=== PATIENT | male | born 1935 | race Hispanic/Latino ===

== ENCOUNTER 2016-04-30 08:27 | Outpatient (CLI) | payer MEDICARE ==
[2016-04-30] MEDS ORDERED: XYLOCAINE TOPICAL 4% TP ONE ×2 (08:48→15:23)
[2016-04-30] MEDS ORDERED: AD OINTMENT TP ONE (09:30)
[2016-05-01] MEDS ORDERED: AD OINTMENT TP SCH (10:00)
== END 2016-04-30 08:28 | disposition home or self-care (01) ==
LOC: WOUND 08:27
PROVIDERS: ATTEND Internal Medicine
DX: I87.313 Chronic venous hypertension (idiopathic) with ulcer of bilateral lower extremity (principal); L97.822 Non-pressure chronic ulcer of other part of left lower leg with fat layer exposed; L97.812 Non-pressure chronic ulcer of other part of right lower leg with fat layer exposed; I87.2 Venous insufficiency (chronic) (peripheral); I77.1 Stricture of artery; M19.90 Unspecified osteoarthritis, unspecified site
CPT/HCPCS: 29581; 97597; A6250

== ENCOUNTER 2016-05-06 08:25 | Outpatient (CLI) | payer MEDICARE ==
[2016-05-06] MEDS ORDERED: XYLOCAINE TOPICAL 4% TP ONE ×2 (08:55→09:03)
== END 2016-05-06 08:26 | disposition home or self-care (01) ==
LOC: WOUND 08:25
PROVIDERS: ATTEND Orthopaedic Surgery
DX: I87.313 Chronic venous hypertension (idiopathic) with ulcer of bilateral lower extremity (principal); L97.822 Non-pressure chronic ulcer of other part of left lower leg with fat layer exposed; L97.812 Non-pressure chronic ulcer of other part of right lower leg with fat layer exposed; M19.90 Unspecified osteoarthritis, unspecified site

== ENCOUNTER 2016-05-13 08:33 | Outpatient (CLI) | payer MEDICARE ==
[2016-05-13] MEDS ORDERED: XYLOCAINE TOPICAL 2% ONE (09:04)
[2016-05-13] MEDS ORDERED: XYLOCAINE TOPICAL 2% TP ONE (14:18)
== END 2016-05-13 08:34 | disposition home or self-care (01) ==
LOC: WOUND 08:33
PROVIDERS: ATTEND Orthopaedic Surgery
DX: L97.821 Non-pressure chronic ulcer of other part of left lower leg limited to breakdown of skin (principal); L97.811 Non-pressure chronic ulcer of other part of right lower leg limited to breakdown of skin; I87.2 Venous insufficiency (chronic) (peripheral); M19.90 Unspecified osteoarthritis, unspecified site
CPT/HCPCS: 29580

== ENCOUNTER 2016-05-20 08:36 | Outpatient (CLI) | payer MEDICARE ==
[2016-05-20] MEDS ORDERED: XYLOCAINE TOPICAL 2% TP ONE ×2 (08:55→09:09)
== END 2016-05-20 08:37 | disposition home or self-care (01) ==
LOC: WOUND 08:36
PROVIDERS: ATTEND Orthopaedic Surgery
DX: I87.313 Chronic venous hypertension (idiopathic) with ulcer of bilateral lower extremity (principal); L97.912 Non-pressure chronic ulcer of unspecified part of right lower leg with fat layer exposed; L97.922 Non-pressure chronic ulcer of unspecified part of left lower leg with fat layer exposed; M19.90 Unspecified osteoarthritis, unspecified site

== ENCOUNTER 2016-05-27 08:35 | Outpatient (CLI) | payer MEDICARE ==
[2016-05-27] MEDS ORDERED: XYLOCAINE TOPICAL 2% ONE (08:48)
[2016-05-27] MEDS ORDERED: XYLOCAINE TOPICAL 2% TP ONE (08:59)
[2016-05-27] MEDS ORDERED: AD OINTMENT TP ONE (09:30)
== END 2016-05-27 08:36 | disposition home or self-care (01) ==
LOC: WOUND 08:35
PROVIDERS: ATTEND Internal Medicine
DX: I87.313 Chronic venous hypertension (idiopathic) with ulcer of bilateral lower extremity (principal); L97.912 Non-pressure chronic ulcer of unspecified part of right lower leg with fat layer exposed; L97.922 Non-pressure chronic ulcer of unspecified part of left lower leg with fat layer exposed; N40.1 Benign prostatic hyperplasia with lower urinary tract symptoms; D50.8 Other iron deficiency anemias; I87.2 Venous insufficiency (chronic) (peripheral); M19.90 Unspecified osteoarthritis, unspecified site
CPT/HCPCS: 29580; 97597; A6250

== ENCOUNTER 2016-06-03 08:23 | Outpatient (CLI) | payer MEDICARE ==
[2016-06-03] MEDS ORDERED: XYLOCAINE TOPICAL 2% ONE (08:57)
[2016-06-03] MEDS ORDERED: XYLOCAINE TOPICAL 2% TP ONE (11:17)
== END 2016-06-03 08:24 | disposition home or self-care (01) ==
LOC: WOUND 08:23
PROVIDERS: ATTEND Internal Medicine
DX: I87.313 Chronic venous hypertension (idiopathic) with ulcer of bilateral lower extremity (principal); L97.811 Non-pressure chronic ulcer of other part of right lower leg limited to breakdown of skin; L97.821 Non-pressure chronic ulcer of other part of left lower leg limited to breakdown of skin; M19.90 Unspecified osteoarthritis, unspecified site; I87.2 Venous insufficiency (chronic) (peripheral); D50.8 Other iron deficiency anemias; N40.1 Benign prostatic hyperplasia with lower urinary tract symptoms

== ENCOUNTER 2016-07-01 08:30 | Outpatient (CLI) | payer MEDICARE ==
[2016-07-01] MEDS ORDERED: AD OINTMENT TP ONE (09:48)
[2016-07-01] MEDS ORDERED: XYLOCAINE TOPICAL 4% TP ONE (10:00)
== END 2016-07-01 08:31 | disposition home or self-care (01) ==
LOC: WOUND 08:30
PROVIDERS: ATTEND Internal Medicine
DX: I87.313 Chronic venous hypertension (idiopathic) with ulcer of bilateral lower extremity (principal); L97.812 Non-pressure chronic ulcer of other part of right lower leg with fat layer exposed; L97.822 Non-pressure chronic ulcer of other part of left lower leg with fat layer exposed; M19.90 Unspecified osteoarthritis, unspecified site
CPT/HCPCS: 29580; A6250

== ENCOUNTER 2016-07-08 08:34 | Outpatient (CLI) | payer MEDICARE ==
[2016-07-08] MEDS ORDERED: XYLOCAINE TOPICAL 4% TP ONE ×2 (08:38→09:15)
[2016-07-08] MEDS ORDERED: AD OINTMENT TP ONE (09:46)
[2016-07-09] MEDS ORDERED: AD OINTMENT TP SCH (10:00)
== END 2016-07-08 08:35 | disposition home or self-care (01) ==
LOC: WOUND 08:34
PROVIDERS: ATTEND Internal Medicine
DX: I87.313 Chronic venous hypertension (idiopathic) with ulcer of bilateral lower extremity (principal); L97.812 Non-pressure chronic ulcer of other part of right lower leg with fat layer exposed; L97.822 Non-pressure chronic ulcer of other part of left lower leg with fat layer exposed; D50.8 Other iron deficiency anemias; N40.1 Benign prostatic hyperplasia with lower urinary tract symptoms; M19.90 Unspecified osteoarthritis, unspecified site; L84 Corns and callosities
CPT/HCPCS: 11055; A6250

== ENCOUNTER 2016-07-15 08:37 | Outpatient (CLI) | payer MEDICARE ==
[2016-07-15] MEDS ORDERED: XYLOCAINE TOPICAL 4% TP ONE ×2 (08:59→09:05)
== END 2016-07-15 08:38 | disposition home or self-care (01) ==
LOC: WOUND 08:37
PROVIDERS: ATTEND Internal Medicine
DX: I87.313 Chronic venous hypertension (idiopathic) with ulcer of bilateral lower extremity (principal); L97.812 Non-pressure chronic ulcer of other part of right lower leg with fat layer exposed; L97.822 Non-pressure chronic ulcer of other part of left lower leg with fat layer exposed; D50.8 Other iron deficiency anemias; M19.90 Unspecified osteoarthritis, unspecified site

== ENCOUNTER 2016-07-22 08:35 | Outpatient (CLI) | payer MEDICARE ==
[2016-07-22] MEDS ORDERED: XYLOCAINE TOPICAL 4% TP ONE ×2 (08:57→11:46)
== END 2016-07-22 08:36 | disposition home or self-care (01) ==
LOC: WOUND 08:35
PROVIDERS: ATTEND Internal Medicine
DX: I87.313 Chronic venous hypertension (idiopathic) with ulcer of bilateral lower extremity (principal); L97.812 Non-pressure chronic ulcer of other part of right lower leg with fat layer exposed; L97.822 Non-pressure chronic ulcer of other part of left lower leg with fat layer exposed; D50.8 Other iron deficiency anemias; M19.90 Unspecified osteoarthritis, unspecified site; I87.2 Venous insufficiency (chronic) (peripheral)
CPT/HCPCS: 29580

== ENCOUNTER 2016-08-05 08:30 | Outpatient (CLI) | payer MEDICARE ==
[2016-08-05] MEDS ORDERED: XYLOCAINE TOPICAL 2% TP ONE ×2 (08:53→09:33)
== END 2016-08-05 08:31 | disposition home or self-care (01) ==
LOC: WOUND 08:30
PROVIDERS: ATTEND Internal Medicine
DX: I87.313 Chronic venous hypertension (idiopathic) with ulcer of bilateral lower extremity (principal); L97.812 Non-pressure chronic ulcer of other part of right lower leg with fat layer exposed; L97.822 Non-pressure chronic ulcer of other part of left lower leg with fat layer exposed; D50.8 Other iron deficiency anemias; M19.90 Unspecified osteoarthritis, unspecified site

== ENCOUNTER 2016-08-12 08:38 | Outpatient (CLI) | payer MEDICARE ==
[2016-08-12] MEDS ORDERED: XYLOCAINE TOPICAL 4% TP ONE (08:47)
== END 2016-08-12 08:39 | disposition home or self-care (01) ==
LOC: WOUND 08:38
PROVIDERS: ATTEND Internal Medicine
DX: I87.313 Chronic venous hypertension (idiopathic) with ulcer of bilateral lower extremity (principal); L97.822 Non-pressure chronic ulcer of other part of left lower leg with fat layer exposed; L97.812 Non-pressure chronic ulcer of other part of right lower leg with fat layer exposed; L97.311 Non-pressure chronic ulcer of right ankle limited to breakdown of skin; D50.8 Other iron deficiency anemias; N40.1 Benign prostatic hyperplasia with lower urinary tract symptoms; M19.90 Unspecified osteoarthritis, unspecified site
CPT/HCPCS: 29580

== ENCOUNTER 2016-08-19 08:37 | Outpatient (CLI) | payer MEDICARE ==
[2016-08-19] MEDS ORDERED: XYLOCAINE TOPICAL 4% TP ONE ×2 (08:57→09:16)
[2016-08-19] MEDS ORDERED: AD OINTMENT TP ONE (09:42)
[2016-08-20] MEDS ORDERED: AD OINTMENT TP PRN (16:10)
== END 2016-08-19 08:38 | disposition home or self-care (01) ==
LOC: WOUND 08:37
PROVIDERS: ATTEND Surgery
DX: I87.313 Chronic venous hypertension (idiopathic) with ulcer of bilateral lower extremity (principal); L97.812 Non-pressure chronic ulcer of other part of right lower leg with fat layer exposed; L97.822 Non-pressure chronic ulcer of other part of left lower leg with fat layer exposed; L97.311 Non-pressure chronic ulcer of right ankle limited to breakdown of skin; M19.90 Unspecified osteoarthritis, unspecified site
CPT/HCPCS: 97597; A6250

== ENCOUNTER 2016-08-26 08:38 | Outpatient (CLI) | payer MEDICARE ==
[~2016-08-26 08:38] MED LIST: XYLOCAINE TOPICAL 4% TP ONE
[2016-08-26] MEDS ORDERED: XYLOCAINE TOPICAL 4% TP ONE (14:43)
== END 2016-08-26 08:39 | disposition home or self-care (01) ==
LOC: WOUND 08:38
PROVIDERS: ATTEND Internal Medicine
DX: I87.313 Chronic venous hypertension (idiopathic) with ulcer of bilateral lower extremity (principal); L97.812 Non-pressure chronic ulcer of other part of right lower leg with fat layer exposed; L97.822 Non-pressure chronic ulcer of other part of left lower leg with fat layer exposed; D50.8 Other iron deficiency anemias; N40.1 Benign prostatic hyperplasia with lower urinary tract symptoms; I87.2 Venous insufficiency (chronic) (peripheral)

== ENCOUNTER 2016-09-02 08:35 | Outpatient (CLI) | payer MEDICARE ==
[2016-09-02] MEDS ORDERED: XYLOCAINE TOPICAL 2% TP ONE ×3 (11:27)
== END 2016-09-02 08:36 | disposition home or self-care (01) ==
LOC: WOUND 08:35
PROVIDERS: ATTEND Internal Medicine
DX: I87.313 Chronic venous hypertension (idiopathic) with ulcer of bilateral lower extremity (principal); L97.822 Non-pressure chronic ulcer of other part of left lower leg with fat layer exposed; L97.312 Non-pressure chronic ulcer of right ankle with fat layer exposed; D50.8 Other iron deficiency anemias; N40.1 Benign prostatic hyperplasia with lower urinary tract symptoms; M19.90 Unspecified osteoarthritis, unspecified site

== ENCOUNTER 2016-09-09 08:40 | Outpatient (CLI) | payer MEDICARE ==
[2016-09-09] MEDS ORDERED: XYLOCAINE TOPICAL 4% TP ONE (08:58)
== END 2016-09-09 08:41 | disposition home or self-care (01) ==
LOC: WOUND 08:40
PROVIDERS: ATTEND Internal Medicine
DX: I87.313 Chronic venous hypertension (idiopathic) with ulcer of bilateral lower extremity (principal); L97.812 Non-pressure chronic ulcer of other part of right lower leg with fat layer exposed; L97.822 Non-pressure chronic ulcer of other part of left lower leg with fat layer exposed; D50.8 Other iron deficiency anemias; N40.1 Benign prostatic hyperplasia with lower urinary tract symptoms

== ENCOUNTER 2016-09-16 08:26 | Outpatient (CLI) | payer MEDICARE ==
[2016-09-16] MEDS ORDERED: XYLOCAINE TOPICAL 4% TP ONE ×2 (08:42→11:30)
== END 2016-09-16 08:27 | disposition home or self-care (01) ==
LOC: WOUND 08:26
PROVIDERS: ATTEND Surgery
DX: I87.313 Chronic venous hypertension (idiopathic) with ulcer of bilateral lower extremity (principal); L97.812 Non-pressure chronic ulcer of other part of right lower leg with fat layer exposed; L97.822 Non-pressure chronic ulcer of other part of left lower leg with fat layer exposed; M19.90 Unspecified osteoarthritis, unspecified site

== ENCOUNTER 2016-09-24 08:43 | Outpatient (CLI) | payer MEDICARE ==
[~2016-09-24 08:43] MED LIST changes: +NACL ONE; -XYLOCAINE TOPICAL 4% TP ONE
[2016-09-24] MEDS ORDERED: XYLOCAINE TOPICAL 4% TP ONE ×2 (09:24→15:33)
[2016-09-25] MEDS ORDERED: NACL ONE (18:19)
== END 2016-09-24 08:44 | disposition home or self-care (01) ==
LOC: WOUND 08:43
PROVIDERS: ATTEND Surgery
DX: I87.313 Chronic venous hypertension (idiopathic) with ulcer of bilateral lower extremity (principal); L97.812 Non-pressure chronic ulcer of other part of right lower leg with fat layer exposed; L97.822 Non-pressure chronic ulcer of other part of left lower leg with fat layer exposed; M19.90 Unspecified osteoarthritis, unspecified site
CPT/HCPCS: 29580

== ENCOUNTER 2016-09-30 08:34 | Outpatient (CLI) | payer MEDICARE ==
[2016-09-30] MEDS ORDERED: XYLOCAINE TOPICAL 4% TP ONE ×2 (08:49→08:54)
== END 2016-09-30 08:35 | disposition home or self-care (01) ==
LOC: WOUND 08:34
PROVIDERS: ATTEND Internal Medicine
DX: I87.313 Chronic venous hypertension (idiopathic) with ulcer of bilateral lower extremity (principal); L97.812 Non-pressure chronic ulcer of other part of right lower leg with fat layer exposed; L97.822 Non-pressure chronic ulcer of other part of left lower leg with fat layer exposed; D50.8 Other iron deficiency anemias; N40.1 Benign prostatic hyperplasia with lower urinary tract symptoms; M19.90 Unspecified osteoarthritis, unspecified site

== ENCOUNTER 2016-10-07 08:32 | Outpatient (CLI) | payer MEDICARE ==
[2016-10-07] MEDS ORDERED: XYLOCAINE TOPICAL 4% TP ONE (09:00)
== END 2016-10-07 08:33 | disposition home or self-care (01) ==
LOC: WOUND 08:32
PROVIDERS: ATTEND Internal Medicine
DX: I87.313 Chronic venous hypertension (idiopathic) with ulcer of bilateral lower extremity (principal); L97.812 Non-pressure chronic ulcer of other part of right lower leg with fat layer exposed; L97.822 Non-pressure chronic ulcer of other part of left lower leg with fat layer exposed; D50.8 Other iron deficiency anemias; N40.1 Benign prostatic hyperplasia with lower urinary tract symptoms; M19.90 Unspecified osteoarthritis, unspecified site

== ENCOUNTER 2016-10-14 08:30 | Outpatient (CLI) | payer MEDICARE ==
[2016-10-14] MEDS ORDERED: XYLOCAINE TOPICAL 4% TP ONE ×2 (08:35→08:51)
[2016-10-14] MEDS ORDERED: SILVER NITRATE TP ONE ×2 (09:33→09:37)
== END 2016-10-14 08:31 | disposition home or self-care (01) ==
LOC: WOUND 08:30
PROVIDERS: ATTEND Internal Medicine
DX: I87.313 Chronic venous hypertension (idiopathic) with ulcer of bilateral lower extremity (principal); L97.812 Non-pressure chronic ulcer of other part of right lower leg with fat layer exposed; L97.822 Non-pressure chronic ulcer of other part of left lower leg with fat layer exposed; D50.8 Other iron deficiency anemias; N40.1 Benign prostatic hyperplasia with lower urinary tract symptoms; M19.90 Unspecified osteoarthritis, unspecified site
CPT/HCPCS: 11719

== ENCOUNTER 2016-10-21 08:34 | Outpatient (CLI) | payer MEDICARE ==
[2016-10-21] MEDS ORDERED: XYLOCAINE TOPICAL 4% TP ONE ×2 (09:03)
== END 2016-10-21 08:35 | disposition home or self-care (01) ==
LOC: WOUND 08:34
PROVIDERS: ATTEND Internal Medicine
DX: I87.313 Chronic venous hypertension (idiopathic) with ulcer of bilateral lower extremity (principal); L97.812 Non-pressure chronic ulcer of other part of right lower leg with fat layer exposed; L97.822 Non-pressure chronic ulcer of other part of left lower leg with fat layer exposed; D50.8 Other iron deficiency anemias; N40.1 Benign prostatic hyperplasia with lower urinary tract symptoms; M19.90 Unspecified osteoarthritis, unspecified site

== ENCOUNTER 2016-10-28 09:00 | Outpatient (CLI) | payer MEDICARE ==
[2016-10-28] MEDS ORDERED: XYLOCAINE TOPICAL 4% TP ONE ×2 (09:41→09:43)
== END 2016-10-28 09:01 | disposition home or self-care (01) ==
LOC: WOUND 09:00
PROVIDERS: ATTEND Internal Medicine Gastroenterology
DX: I87.313 Chronic venous hypertension (idiopathic) with ulcer of bilateral lower extremity (principal); L97.812 Non-pressure chronic ulcer of other part of right lower leg with fat layer exposed; L97.822 Non-pressure chronic ulcer of other part of left lower leg with fat layer exposed; L97.311 Non-pressure chronic ulcer of right ankle limited to breakdown of skin; D50.8 Other iron deficiency anemias; N40.1 Benign prostatic hyperplasia with lower urinary tract symptoms; M19.90 Unspecified osteoarthritis, unspecified site; I87.2 Venous insufficiency (chronic) (peripheral)

== ENCOUNTER 2016-11-04 08:31 | Outpatient (CLI) | payer MEDICARE ==
[2016-11-04] MEDS ORDERED: XYLOCAINE TOPICAL 4% TP ONE ×2 (08:45→08:56)
== END 2016-11-04 08:32 | disposition home or self-care (01) ==
LOC: WOUND 08:31
PROVIDERS: ATTEND Internal Medicine
DX: I87.312 Chronic venous hypertension (idiopathic) with ulcer of left lower extremity (principal); L97.822 Non-pressure chronic ulcer of other part of left lower leg with fat layer exposed; D50.8 Other iron deficiency anemias; M19.90 Unspecified osteoarthritis, unspecified site

== ENCOUNTER 2016-11-08 08:41 | Outpatient (CLI) | payer MEDICARE ==
--- NOTE | 2016-11-08 13:42 | Fluoroscopy Report ---
DOUBLE CONTRAST BARIUM ENEMA INDICATION: Incomplete colonoscopy. COMPARISON: 10/14/2012 FINDINGS: Exam technically difficult due to patient's kyphoscoliosis and unable to move or position well on the table. Preliminary radiograph demonstrates nonobstructive bowel gas pattern. Left iliac stent, bilateral inguinal hernia repair roxy and a right hemipelvic phlebolith noted. Demineralized bones with mild lumbar dextroscoliosis apex at L3-L4. Using fluoroscopic guidance, colon filled in retrograde fashion with barium and air, though entire cecum not confirmed opacified without demonstratable reflux into the appendix or the terminal ileum. Visualized colonic caliber and mucosal pattern grossly normal in appearance. No constricting lesions or fixed intraluminal masses identified, though stool artifact along the colon, more so along the descending colon and the rectosigmoid as also barium flocculation limits assessment. CONCLUSION: 1. No gross colonic mucosal abnormality, though exam technically limited due to patient positioning and colon artifacts, as described. Cecum/proximal ascending colon also not confirmed entirely opacified/evaluated. 2. Various other incidental findings, as above. Thank you for the opportunity to participate in this patient's care.
== END 2016-11-08 08:42 | disposition home or self-care (01) ==
LOC: FLUORO 08:41
PROVIDERS: ATTEND Internal Medicine Gastroenterology
DX: R93.3 Abnormal findings on diagnostic imaging of other parts of digestive tract (principal); I87.8 Other specified disorders of veins; M41.86 Other forms of scoliosis, lumbar region
CPT/HCPCS: 74280

== ENCOUNTER 2016-11-11 08:32 | Outpatient (CLI) | payer MEDICARE ==
[2016-11-11] MEDS ORDERED: XYLOCAINE TOPICAL 4% TP ONE ×2 (08:51→08:58)
== END 2016-11-11 08:33 | disposition home or self-care (01) ==
LOC: WOUND 08:32
PROVIDERS: ATTEND Internal Medicine
DX: I87.313 Chronic venous hypertension (idiopathic) with ulcer of bilateral lower extremity (principal); L97.822 Non-pressure chronic ulcer of other part of left lower leg with fat layer exposed; L97.812 Non-pressure chronic ulcer of other part of right lower leg with fat layer exposed; M19.90 Unspecified osteoarthritis, unspecified site

== ENCOUNTER 2016-11-18 08:32 | Outpatient (CLI) | payer MEDICARE ==
[~2016-11-18 08:32] MED LIST changes: +CALAN ONE; +HEPARIN 10,000 UNITS/10 ML ONE; +HEPARIN/NS 5000 UNIT/500ML(CATH LAB) 500 ML IR ONE; -NACL ONE; +NITROGLYCERIN SYRINGE 0 ML ONE; +XYLOCAINE 2% INFILTRATI ONE
[2016-11-18] MEDS ORDERED: XYLOCAINE TOPICAL 4% TP ONE ×2 (08:51→08:57)
== END 2016-11-18 08:33 | disposition home or self-care (01) ==
LOC: WOUND 08:32
PROVIDERS: ATTEND Internal Medicine
DX: I87.313 Chronic venous hypertension (idiopathic) with ulcer of bilateral lower extremity (principal); L97.822 Non-pressure chronic ulcer of other part of left lower leg with fat layer exposed; L97.312 Non-pressure chronic ulcer of right ankle with fat layer exposed; D50.8 Other iron deficiency anemias; M19.90 Unspecified osteoarthritis, unspecified site
CPT/HCPCS: 11042; 11045; J1644

== ENCOUNTER 2016-11-25 08:34 | Outpatient (CLI) | payer MEDICARE ==
[2016-11-25] MEDS ORDERED: XYLOCAINE TOPICAL 4% TP ONE ×2 (08:39→08:56)
== END 2016-11-25 08:35 | disposition home or self-care (01) ==
LOC: WOUND 08:34
PROVIDERS: ATTEND Internal Medicine
DX: I87.313 Chronic venous hypertension (idiopathic) with ulcer of bilateral lower extremity (principal); L97.812 Non-pressure chronic ulcer of other part of right lower leg with fat layer exposed; L97.822 Non-pressure chronic ulcer of other part of left lower leg with fat layer exposed; L97.311 Non-pressure chronic ulcer of right ankle limited to breakdown of skin; D50.8 Other iron deficiency anemias; N40.1 Benign prostatic hyperplasia with lower urinary tract symptoms; M19.90 Unspecified osteoarthritis, unspecified site; I87.2 Venous insufficiency (chronic) (peripheral)

== ENCOUNTER 2016-12-02 08:30 | Outpatient (CLI) | payer MEDICARE ==
[2016-12-02] MEDS ORDERED: XYLOCAINE TOPICAL 4% TP ONE ×2 (08:43→09:10)
== END 2016-12-02 08:31 | disposition home or self-care (01) ==
LOC: WOUND 08:30
PROVIDERS: ATTEND Internal Medicine
DX: I87.313 Chronic venous hypertension (idiopathic) with ulcer of bilateral lower extremity (principal); L97.822 Non-pressure chronic ulcer of other part of left lower leg with fat layer exposed; L97.312 Non-pressure chronic ulcer of right ankle with fat layer exposed; D50.8 Other iron deficiency anemias; M19.90 Unspecified osteoarthritis, unspecified site
CPT/HCPCS: 29581

== ENCOUNTER 2016-12-09 08:38 | Outpatient (CLI) | payer MEDICARE ==
[2016-12-09] MEDS ORDERED: XYLOCAINE TOPICAL 4% TP ONE ×2 (09:05→09:10)
== END 2016-12-09 08:39 | disposition home or self-care (01) ==
LOC: WOUND 08:38
PROVIDERS: ATTEND Internal Medicine
DX: I87.313 Chronic venous hypertension (idiopathic) with ulcer of bilateral lower extremity (principal); L97.812 Non-pressure chronic ulcer of other part of right lower leg with fat layer exposed; L97.822 Non-pressure chronic ulcer of other part of left lower leg with fat layer exposed; D50.8 Other iron deficiency anemias; M19.90 Unspecified osteoarthritis, unspecified site

== ENCOUNTER 2016-12-16 08:41 | Outpatient (CLI) | payer MEDICARE ==
[2016-12-16] MEDS ORDERED: XYLOCAINE TOPICAL 4% TP ONE ×2 (08:42→08:57)
== END 2016-12-16 08:42 | disposition home or self-care (01) ==
LOC: WOUND 08:41
PROVIDERS: ATTEND Internal Medicine
DX: I87.313 Chronic venous hypertension (idiopathic) with ulcer of bilateral lower extremity (principal); L97.821 Non-pressure chronic ulcer of other part of left lower leg limited to breakdown of skin; L97.312 Non-pressure chronic ulcer of right ankle with fat layer exposed; D50.8 Other iron deficiency anemias; M19.90 Unspecified osteoarthritis, unspecified site

== ENCOUNTER 2016-12-23 08:28 | Outpatient (CLI) | payer MEDICARE ==
[2016-12-23] MEDS ORDERED: XYLOCAINE TOPICAL 4% TP ONE (08:53)
[2016-12-24] MEDS ORDERED: NACL ONE (09:55)
== END 2016-12-23 08:29 | disposition home or self-care (01) ==
LOC: WOUND 08:28
PROVIDERS: ATTEND Internal Medicine
DX: I87.313 Chronic venous hypertension (idiopathic) with ulcer of bilateral lower extremity (principal); L97.812 Non-pressure chronic ulcer of other part of right lower leg with fat layer exposed; L97.822 Non-pressure chronic ulcer of other part of left lower leg with fat layer exposed; M19.90 Unspecified osteoarthritis, unspecified site; D50.8 Other iron deficiency anemias
CPT/HCPCS: 97597

== ENCOUNTER 2016-12-31 08:32 | Outpatient (CLI) | payer MEDICARE ==
[2016-12-31] MEDS ORDERED: XYLOCAINE TOPICAL 4% TP ONE ×2 (08:54)
== END 2016-12-31 08:33 | disposition home or self-care (01) ==
LOC: WOUND 08:32
PROVIDERS: ATTEND Surgery
DX: I87.313 Chronic venous hypertension (idiopathic) with ulcer of bilateral lower extremity (principal); L97.812 Non-pressure chronic ulcer of other part of right lower leg with fat layer exposed; L97.822 Non-pressure chronic ulcer of other part of left lower leg with fat layer exposed; M19.90 Unspecified osteoarthritis, unspecified site

== ENCOUNTER 2017-01-07 10:02 | Outpatient (CLI) | payer MEDICARE ==
[2017-01-07] MEDS ORDERED: XYLOCAINE TOPICAL 4% TP ONE (11:07)
== END 2017-01-07 10:03 | disposition home or self-care (01) ==
LOC: WOUND 10:02
PROVIDERS: ATTEND Surgery
DX: I87.313 Chronic venous hypertension (idiopathic) with ulcer of bilateral lower extremity (principal); L97.812 Non-pressure chronic ulcer of other part of right lower leg with fat layer exposed; L97.822 Non-pressure chronic ulcer of other part of left lower leg with fat layer exposed; M19.90 Unspecified osteoarthritis, unspecified site

== ENCOUNTER 2017-01-13 08:30 | Outpatient (CLI) | payer MEDICARE ==
[2017-01-13] MEDS ORDERED: XYLOCAINE TOPICAL 4% TP ONE ×2 (08:40→08:46)
[2017-01-13] MEDS ORDERED: AD OINTMENT TP ONE (09:44)
[2017-01-14] MEDS ORDERED: AD OINTMENT TP SCH (10:00)
== END 2017-01-13 08:31 | disposition home or self-care (01) ==
LOC: WOUND 08:30
PROVIDERS: ATTEND Internal Medicine
DX: I87.313 Chronic venous hypertension (idiopathic) with ulcer of bilateral lower extremity (principal); L97.812 Non-pressure chronic ulcer of other part of right lower leg with fat layer exposed; L97.822 Non-pressure chronic ulcer of other part of left lower leg with fat layer exposed; D50.8 Other iron deficiency anemias
CPT/HCPCS: A6250

== ENCOUNTER 2017-01-20 08:34 | Outpatient (CLI) | payer MEDICARE ==
[2017-01-20] MEDS ORDERED: XYLOCAINE TOPICAL 4% TP ONE ×2 (08:38)
[2017-01-20] MEDS ORDERED: SILVER NITRATE TP ONE ×2 (09:38→10:12)
== END 2017-01-20 08:35 | disposition home or self-care (01) ==
LOC: WOUND 08:34
PROVIDERS: ATTEND Internal Medicine
DX: I87.313 Chronic venous hypertension (idiopathic) with ulcer of bilateral lower extremity (principal); L97.812 Non-pressure chronic ulcer of other part of right lower leg with fat layer exposed; L97.822 Non-pressure chronic ulcer of other part of left lower leg with fat layer exposed; D50.8 Other iron deficiency anemias

== ENCOUNTER 2017-01-28 08:26 | Outpatient (CLI) | payer MEDICARE ==
[2017-01-28] MEDS ORDERED: XYLOCAINE TOPICAL 4% TP ONE (09:08)
[2017-01-29] MEDS ORDERED: XYLOCAINE TOPICAL 4% TP ONE (16:14)
== END 2017-01-28 08:27 | disposition home or self-care (01) ==
LOC: WOUND 08:26
PROVIDERS: ATTEND Surgery
DX: I87.2 Venous insufficiency (chronic) (peripheral) (principal); L97.821 Non-pressure chronic ulcer of other part of left lower leg limited to breakdown of skin; L97.311 Non-pressure chronic ulcer of right ankle limited to breakdown of skin; M19.90 Unspecified osteoarthritis, unspecified site; I77.1 Stricture of artery

== ENCOUNTER 2017-02-03 08:30 | Outpatient (CLI) | payer MEDICARE ==
[2017-02-03] MEDS ORDERED: XYLOCAINE TOPICAL 4% TP ONE (09:00)
== END 2017-02-03 08:31 | disposition home or self-care (01) ==
LOC: WOUND 08:30
PROVIDERS: ATTEND Internal Medicine
DX: I87.313 Chronic venous hypertension (idiopathic) with ulcer of bilateral lower extremity (principal); L97.812 Non-pressure chronic ulcer of other part of right lower leg with fat layer exposed; L97.822 Non-pressure chronic ulcer of other part of left lower leg with fat layer exposed; D50.8 Other iron deficiency anemias; M19.90 Unspecified osteoarthritis, unspecified site
CPT/HCPCS: 15271; Q4131; 29581

== ENCOUNTER 2017-02-10 08:36 | Outpatient (CLI) | payer MEDICARE ==
[2017-02-10] MEDS ORDERED: XYLOCAINE TOPICAL 4% TP ONE ×2 (09:11→09:18)
== END 2017-02-10 08:37 | disposition home or self-care (01) ==
LOC: WOUND 08:36
PROVIDERS: ATTEND Internal Medicine
DX: I87.313 Chronic venous hypertension (idiopathic) with ulcer of bilateral lower extremity (principal); L97.311 Non-pressure chronic ulcer of right ankle limited to breakdown of skin; L97.821 Non-pressure chronic ulcer of other part of left lower leg limited to breakdown of skin; D50.8 Other iron deficiency anemias; N40.1 Benign prostatic hyperplasia with lower urinary tract symptoms; M19.90 Unspecified osteoarthritis, unspecified site
CPT/HCPCS: 11042; 15271; Q4131

== ENCOUNTER 2017-02-17 08:35 | Outpatient (CLI) | payer MEDICARE ==
[2017-02-17] MEDS ORDERED: XYLOCAINE TOPICAL 4% TP ONE ×2 (08:52→08:56)
== END 2017-02-17 08:36 | disposition home or self-care (01) ==
LOC: WOUND 08:35
PROVIDERS: ATTEND Internal Medicine
DX: I87.313 Chronic venous hypertension (idiopathic) with ulcer of bilateral lower extremity (principal); L97.812 Non-pressure chronic ulcer of other part of right lower leg with fat layer exposed; L97.822 Non-pressure chronic ulcer of other part of left lower leg with fat layer exposed; M19.90 Unspecified osteoarthritis, unspecified site
CPT/HCPCS: 11042; 15271; Q4131

== ENCOUNTER 2017-02-24 08:37 | Outpatient (CLI) | payer MEDICARE ==
[2017-02-24] MEDS ORDERED: XYLOCAINE TOPICAL 4% TP ONE (09:07)
[2017-02-24] MEDS ORDERED: SODIUM CHLORIDE FLUSH SYRINGE 10 ML IV ONE (10:08)
== END 2017-02-24 08:38 | disposition home or self-care (01) ==
LOC: WOUND 08:37
PROVIDERS: ATTEND Internal Medicine
DX: I87.313 Chronic venous hypertension (idiopathic) with ulcer of bilateral lower extremity (principal); L97.812 Non-pressure chronic ulcer of other part of right lower leg with fat layer exposed; L97.822 Non-pressure chronic ulcer of other part of left lower leg with fat layer exposed; D50.8 Other iron deficiency anemias; M19.90 Unspecified osteoarthritis, unspecified site
CPT/HCPCS: 15271; Q4131; 29581

== ENCOUNTER 2017-03-10 08:30 | Outpatient (CLI) | payer MEDICARE ==
[2017-03-10] MEDS ORDERED: XYLOCAINE TOPICAL 4% TP ONE (08:56)
== END 2017-03-10 08:31 | disposition home or self-care (01) ==
LOC: WOUND 08:30
PROVIDERS: ATTEND Internal Medicine
DX: I87.313 Chronic venous hypertension (idiopathic) with ulcer of bilateral lower extremity (principal); L97.321 Non-pressure chronic ulcer of left ankle limited to breakdown of skin; L97.311 Non-pressure chronic ulcer of right ankle limited to breakdown of skin; D50.8 Other iron deficiency anemias; M19.90 Unspecified osteoarthritis, unspecified site
CPT/HCPCS: 10060; 29581

== ENCOUNTER 2017-03-17 08:31 | Outpatient (CLI) | payer MEDICARE ==
[2017-03-17] MEDS ORDERED: XYLOCAINE TOPICAL 4% TP ONE ×2 (08:54→09:08)
[2017-03-18] MEDS ORDERED: NACL 0.9% 1000 ML 0 ML ONE (11:25)
== END 2017-03-17 08:32 | disposition home or self-care (01) ==
LOC: WOUND 08:31
PROVIDERS: ATTEND Internal Medicine
DX: I87.313 Chronic venous hypertension (idiopathic) with ulcer of bilateral lower extremity (principal); L97.812 Non-pressure chronic ulcer of other part of right lower leg with fat layer exposed; L97.822 Non-pressure chronic ulcer of other part of left lower leg with fat layer exposed; D50.8 Other iron deficiency anemias; M19.90 Unspecified osteoarthritis, unspecified site
CPT/HCPCS: 87075; 87116; J7030

== ENCOUNTER 2017-03-24 08:36 | Outpatient (CLI) | payer MEDICARE ==
[2017-03-24] MEDS ORDERED: XYLOCAINE TOPICAL 4% TP ONE (08:56)
== END 2017-03-24 08:37 | disposition home or self-care (01) ==
LOC: WOUND 08:36
PROVIDERS: ATTEND Internal Medicine
DX: I87.313 Chronic venous hypertension (idiopathic) with ulcer of bilateral lower extremity (principal); L97.812 Non-pressure chronic ulcer of other part of right lower leg with fat layer exposed; L97.822 Non-pressure chronic ulcer of other part of left lower leg with fat layer exposed; D50.8 Other iron deficiency anemias; M19.90 Unspecified osteoarthritis, unspecified site

== ENCOUNTER 2017-03-31 08:36 | Outpatient (CLI) | payer MEDICARE ==
[2017-03-31] MEDS ORDERED: XYLOCAINE TOPICAL 4% TP ONE (09:36)
== END 2017-03-31 08:37 | disposition home or self-care (01) ==
LOC: WOUND 08:36
PROVIDERS: ATTEND Surgery
DX: I87.313 Chronic venous hypertension (idiopathic) with ulcer of bilateral lower extremity (principal); L97.812 Non-pressure chronic ulcer of other part of right lower leg with fat layer exposed; L97.822 Non-pressure chronic ulcer of other part of left lower leg with fat layer exposed; M19.90 Unspecified osteoarthritis, unspecified site

== ENCOUNTER 2017-04-07 08:43 | Outpatient (CLI) | payer MEDICARE ==
[2017-04-07] MEDS ORDERED: XYLOCAINE TOPICAL 4% TP ONE (09:08)
== END 2017-04-07 08:44 | disposition home or self-care (01) ==
LOC: WOUND 08:43
PROVIDERS: ATTEND Internal Medicine
DX: I87.313 Chronic venous hypertension (idiopathic) with ulcer of bilateral lower extremity (principal); L97.812 Non-pressure chronic ulcer of other part of right lower leg with fat layer exposed; L97.822 Non-pressure chronic ulcer of other part of left lower leg with fat layer exposed; D50.8 Other iron deficiency anemias; M19.90 Unspecified osteoarthritis, unspecified site
CPT/HCPCS: 29581

== ENCOUNTER 2017-04-14 08:34 | Outpatient (CLI) | payer MEDICARE ==
[2017-04-14] MEDS ORDERED: XYLOCAINE TOPICAL 4% TP ONE (08:57)
[2017-04-15] MEDS ORDERED: PROVENTIL IH ONE (20:37)
== END 2017-04-14 08:35 | disposition home or self-care (01) ==
LOC: WOUND 08:34
PROVIDERS: ATTEND Internal Medicine
DX: I87.312 Chronic venous hypertension (idiopathic) with ulcer of left lower extremity (principal); L97.322 Non-pressure chronic ulcer of left ankle with fat layer exposed; N40.1 Benign prostatic hyperplasia with lower urinary tract symptoms; I87.2 Venous insufficiency (chronic) (peripheral); M19.90 Unspecified osteoarthritis, unspecified site

== ENCOUNTER 2017-04-22 08:41 | Outpatient (CLI) | payer MEDICARE ==
[2017-04-22] MEDS ORDERED: XYLOCAINE TOPICAL 4% TP ONE ×2 (08:52→09:00)
== END 2017-04-22 08:42 | disposition home or self-care (01) ==
LOC: WOUND 08:41
PROVIDERS: ATTEND Surgery
DX: I87.313 Chronic venous hypertension (idiopathic) with ulcer of bilateral lower extremity (principal); L97.812 Non-pressure chronic ulcer of other part of right lower leg with fat layer exposed; L97.822 Non-pressure chronic ulcer of other part of left lower leg with fat layer exposed; M19.90 Unspecified osteoarthritis, unspecified site

== ENCOUNTER 2017-04-29 08:40 | Outpatient (CLI) | payer MEDICARE ==
[2017-04-29] MEDS ORDERED: XYLOCAINE TOPICAL 4% TP ONE (09:05)
[2017-04-29] MEDS ORDERED: XYLOCAINE TOPICAL 2% 5ML ONE (09:08)
== END 2017-04-29 08:41 | disposition home or self-care (01) ==
LOC: WOUND 08:40
PROVIDERS: ATTEND Surgery
DX: I87.313 Chronic venous hypertension (idiopathic) with ulcer of bilateral lower extremity (principal); L97.812 Non-pressure chronic ulcer of other part of right lower leg with fat layer exposed; L97.822 Non-pressure chronic ulcer of other part of left lower leg with fat layer exposed; M19.90 Unspecified osteoarthritis, unspecified site

== ENCOUNTER 2017-05-05 08:45 | Outpatient (CLI) | payer MEDICARE ==
[2017-05-05] MEDS ORDERED: XYLOCAINE TOPICAL 4% TP ONE ×2 (08:52→08:59)
[2017-05-05] MEDS ORDERED: SILVER NITRATE TP ONE ×2 (09:52→11:19)
== END 2017-05-05 08:46 | disposition home or self-care (01) ==
LOC: WOUND 08:45
PROVIDERS: ATTEND Internal Medicine
DX: I87.312 Chronic venous hypertension (idiopathic) with ulcer of left lower extremity (principal); L97.322 Non-pressure chronic ulcer of left ankle with fat layer exposed; M19.90 Unspecified osteoarthritis, unspecified site

== ENCOUNTER 2017-05-12 08:42 | Outpatient (CLI) | payer MEDICARE ==
[2017-05-12] MEDS ORDERED: XYLOCAINE TOPICAL 4% TP ONE (09:04)
== END 2017-05-12 08:43 | disposition home or self-care (01) ==
LOC: WOUND 08:42
PROVIDERS: ATTEND Internal Medicine
DX: I87.313 Chronic venous hypertension (idiopathic) with ulcer of bilateral lower extremity (principal); L97.812 Non-pressure chronic ulcer of other part of right lower leg with fat layer exposed; L97.321 Non-pressure chronic ulcer of left ankle limited to breakdown of skin; D50.8 Other iron deficiency anemias; N40.1 Benign prostatic hyperplasia with lower urinary tract symptoms; M19.90 Unspecified osteoarthritis, unspecified site

== ENCOUNTER 2017-05-19 08:43 | Outpatient (CLI) | payer MEDICARE ==
[2017-05-19] MEDS ORDERED: XYLOCAINE TOPICAL 4% TP ONE ×2 (09:10→09:11)
== END 2017-05-19 08:44 | disposition home or self-care (01) ==
LOC: WOUND 08:43
PROVIDERS: ATTEND Internal Medicine
DX: I87.313 Chronic venous hypertension (idiopathic) with ulcer of bilateral lower extremity (principal); L97.321 Non-pressure chronic ulcer of left ankle limited to breakdown of skin; D50.8 Other iron deficiency anemias; N40.1 Benign prostatic hyperplasia with lower urinary tract symptoms; M19.90 Unspecified osteoarthritis, unspecified site

== ENCOUNTER 2017-05-26 08:43 | Outpatient (CLI) | payer MEDICARE ==
[2017-05-26] MEDS ORDERED: XYLOCAINE TOPICAL 4% TP ONE (09:11)
== END 2017-05-26 08:44 | disposition home or self-care (01) ==
LOC: WOUND 08:43
PROVIDERS: ATTEND Internal Medicine
DX: I87.313 Chronic venous hypertension (idiopathic) with ulcer of bilateral lower extremity (principal); L97.322 Non-pressure chronic ulcer of left ankle with fat layer exposed; L97.812 Non-pressure chronic ulcer of other part of right lower leg with fat layer exposed; M19.90 Unspecified osteoarthritis, unspecified site; D50.8 Other iron deficiency anemias
CPT/HCPCS: 29581

== ENCOUNTER 2017-05-26 10:38 | Outpatient (CLI) | payer MEDICARE ==
--- NOTE | 2017-05-26 12:30 | XRay Report ---
LEFT KNEE RADIOGRAPHS INDICATION: Knee pain. COMPARISON: None similar. FINDINGS: AP, lateral and oblique left knee radiographs demonstrate small to moderate suprapatellar effusion. Intact articulation. Mild degenerative spurring. Osteopenia/osteoporosis. CONCLUSION: Small suprapatellar effusion; otherwise age-appropriate osteoarthritic changes, as above. Please correlate. Thank you for the opportunity to participate in this patient's care.
== END 2017-05-26 10:39 | disposition home or self-care (01) ==
LOC: VAS 10:38
PROVIDERS: ATTEND Internal Medicine
DX: M17.12 Unilateral primary osteoarthritis, left knee (principal); M25.462 Effusion, left knee; M79.89 Other specified soft tissue disorders; M79.605 Pain in left leg

== ENCOUNTER 2017-06-02 08:35 | Outpatient (CLI) | payer MEDICARE ==
[2017-06-02] MEDS ORDERED: XYLOCAINE TOPICAL 4% TP ONE ×3 (09:01→09:29)
[2017-06-03] MEDS ORDERED: ATIVAN ONE (11:05)
== END 2017-06-02 08:36 | disposition home or self-care (01) ==
LOC: WOUND 08:35
PROVIDERS: ATTEND Internal Medicine
DX: I87.313 Chronic venous hypertension (idiopathic) with ulcer of bilateral lower extremity (principal); L97.321 Non-pressure chronic ulcer of left ankle limited to breakdown of skin; D50.8 Other iron deficiency anemias; N40.1 Benign prostatic hyperplasia with lower urinary tract symptoms; M19.90 Unspecified osteoarthritis, unspecified site; L97.811 Non-pressure chronic ulcer of other part of right lower leg limited to breakdown of skin
CPT/HCPCS: J2060

== ENCOUNTER 2017-06-09 08:32 | Outpatient (CLI) | payer MEDICARE ==
[2017-06-09] MEDS ORDERED: XYLOCAINE TOPICAL 4% TP ONE ×2 (08:52→13:42)
[2017-06-09] MEDS ORDERED: ZEMURON IV ONE (13:36)
== END 2017-06-09 08:33 | disposition home or self-care (01) ==
LOC: WOUND 08:32
PROVIDERS: ATTEND Internal Medicine
DX: I87.313 Chronic venous hypertension (idiopathic) with ulcer of bilateral lower extremity (principal); L97.812 Non-pressure chronic ulcer of other part of right lower leg with fat layer exposed; L97.822 Non-pressure chronic ulcer of other part of left lower leg with fat layer exposed; D50.8 Other iron deficiency anemias; M19.90 Unspecified osteoarthritis, unspecified site
CPT/HCPCS: 29580

== ENCOUNTER 2017-06-16 08:43 | Outpatient (CLI) | payer MEDICARE ==
[2017-06-16] MEDS ORDERED: XYLOCAINE TOPICAL 4% TP ONE (08:55)
== END 2017-06-16 08:44 | disposition home or self-care (01) ==
LOC: WOUND 08:43
PROVIDERS: ATTEND Internal Medicine
DX: I87.313 Chronic venous hypertension (idiopathic) with ulcer of bilateral lower extremity (principal); L97.822 Non-pressure chronic ulcer of other part of left lower leg with fat layer exposed; L97.812 Non-pressure chronic ulcer of other part of right lower leg with fat layer exposed; D50.8 Other iron deficiency anemias; M19.90 Unspecified osteoarthritis, unspecified site
CPT/HCPCS: 29580

== ENCOUNTER 2017-06-23 08:38 | Outpatient (CLI) | payer MEDICARE ==
[2017-06-23] MEDS ORDERED: XYLOCAINE TOPICAL 4% TP ONE ×2 (09:01→09:06)
== END 2017-06-23 08:39 | disposition home or self-care (01) ==
LOC: WOUND 08:38
PROVIDERS: ATTEND Internal Medicine
DX: I87.313 Chronic venous hypertension (idiopathic) with ulcer of bilateral lower extremity (principal); L97.322 Non-pressure chronic ulcer of left ankle with fat layer exposed; L97.812 Non-pressure chronic ulcer of other part of right lower leg with fat layer exposed; D50.8 Other iron deficiency anemias; M19.90 Unspecified osteoarthritis, unspecified site
CPT/HCPCS: 29580

== ENCOUNTER 2017-06-30 08:32 | Outpatient (CLI) | payer MEDICARE ==
[2017-06-30] MEDS ORDERED: XYLOCAINE TOPICAL 4% TP ONE ×2 (08:51→09:03)
== END 2017-06-30 08:33 | disposition home or self-care (01) ==
LOC: WOUND 08:32
PROVIDERS: ATTEND Internal Medicine
DX: L97.812 Non-pressure chronic ulcer of other part of right lower leg with fat layer exposed (principal); L97.822 Non-pressure chronic ulcer of other part of left lower leg with fat layer exposed; I87.313 Chronic venous hypertension (idiopathic) with ulcer of bilateral lower extremity; D50.8 Other iron deficiency anemias; M19.90 Unspecified osteoarthritis, unspecified site
CPT/HCPCS: 29580

== ENCOUNTER 2017-07-07 08:50 | Outpatient (CLI) | payer MEDICARE ==
[2017-07-07] MEDS ORDERED: XYLOCAINE TOPICAL 4% TP ONE (08:55)
[2017-07-08] MEDS ORDERED: NACL 0.9% 1000 ML 1,000 ML ONE (18:18)
== END 2017-07-07 08:51 | disposition home or self-care (01) ==
LOC: WOUND 08:50
PROVIDERS: ATTEND Internal Medicine
DX: L97.812 Non-pressure chronic ulcer of other part of right lower leg with fat layer exposed (principal); L97.822 Non-pressure chronic ulcer of other part of left lower leg with fat layer exposed; I87.313 Chronic venous hypertension (idiopathic) with ulcer of bilateral lower extremity; D50.8 Other iron deficiency anemias; M19.90 Unspecified osteoarthritis, unspecified site
CPT/HCPCS: 29580; J7030

== ENCOUNTER 2017-07-14 08:34 | Outpatient (CLI) | payer MEDICARE ==
[2017-07-14] MEDS ORDERED: XYLOCAINE TOPICAL 4% TP ONE (08:52)
== END 2017-07-14 08:35 | disposition home or self-care (01) ==
LOC: WOUND 08:34
PROVIDERS: ATTEND Internal Medicine
DX: I87.313 Chronic venous hypertension (idiopathic) with ulcer of bilateral lower extremity (principal); L97.812 Non-pressure chronic ulcer of other part of right lower leg with fat layer exposed; L97.822 Non-pressure chronic ulcer of other part of left lower leg with fat layer exposed; D50.8 Other iron deficiency anemias; M19.90 Unspecified osteoarthritis, unspecified site
CPT/HCPCS: 29580

== ENCOUNTER 2017-07-21 08:32 | Outpatient (CLI) | payer MEDICARE ==
[2017-07-21] MEDS ORDERED: XYLOCAINE TOPICAL 4% TP ONE ×2 (08:50→08:54)
== END 2017-07-21 08:33 | disposition home or self-care (01) ==
LOC: WOUND 08:32
PROVIDERS: ATTEND Internal Medicine
DX: I87.313 Chronic venous hypertension (idiopathic) with ulcer of bilateral lower extremity (principal); L97.812 Non-pressure chronic ulcer of other part of right lower leg with fat layer exposed; L97.822 Non-pressure chronic ulcer of other part of left lower leg with fat layer exposed; D50.8 Other iron deficiency anemias; M19.90 Unspecified osteoarthritis, unspecified site
CPT/HCPCS: 29580

== ENCOUNTER 2017-07-28 13:24 | Outpatient (CLI) | payer MEDICARE ==
[2017-07-28] MEDS ORDERED: SODIUM CHLORIDE FLUSH SYRINGE 10 ML IV ONE (13:41)
[2017-07-28] MEDS ORDERED: XYLOCAINE TOPICAL 4% TP ONE ×2 (13:41→14:00)
== END 2017-07-28 13:25 | disposition home or self-care (01) ==
LOC: WOUND 13:24
PROVIDERS: ATTEND Internal Medicine
DX: I87.313 Chronic venous hypertension (idiopathic) with ulcer of bilateral lower extremity (principal); L97.812 Non-pressure chronic ulcer of other part of right lower leg with fat layer exposed; L97.321 Non-pressure chronic ulcer of left ankle limited to breakdown of skin; D50.8 Other iron deficiency anemias; M19.90 Unspecified osteoarthritis, unspecified site
CPT/HCPCS: 15271; Q4158; 15275; 29580

== ENCOUNTER 2017-08-04 08:41 | Outpatient (CLI) | payer MEDICARE ==
[2017-08-04] MEDS ORDERED: XYLOCAINE TOPICAL 4% TP ONE (08:59)
[2017-08-04] MEDS ORDERED: SODIUM CHLORIDE FLUSH SYRINGE 10 ML IV ONE ×2 (09:45→10:42)
== END 2017-08-04 08:42 | disposition home or self-care (01) ==
LOC: WOUND 08:41
PROVIDERS: ATTEND Internal Medicine
DX: I87.313 Chronic venous hypertension (idiopathic) with ulcer of bilateral lower extremity (principal); L97.322 Non-pressure chronic ulcer of left ankle with fat layer exposed; L97.812 Non-pressure chronic ulcer of other part of right lower leg with fat layer exposed; D50.8 Other iron deficiency anemias; M19.90 Unspecified osteoarthritis, unspecified site
CPT/HCPCS: 15271; 29580; Q4158

== ENCOUNTER 2017-08-25 08:32 | Outpatient (CLI) | payer MEDICARE ==
[2017-08-25] MEDS ORDERED: XYLOCAINE TOPICAL 4% TP ONE ×2 (08:43→08:52)
== END 2017-08-25 08:33 | disposition home or self-care (01) ==
LOC: WOUND 08:32
PROVIDERS: ATTEND Internal Medicine
DX: I87.313 Chronic venous hypertension (idiopathic) with ulcer of bilateral lower extremity (principal); L97.322 Non-pressure chronic ulcer of left ankle with fat layer exposed; L97.812 Non-pressure chronic ulcer of other part of right lower leg with fat layer exposed; D50.8 Other iron deficiency anemias; M19.90 Unspecified osteoarthritis, unspecified site
CPT/HCPCS: 29580

== ENCOUNTER 2017-09-01 08:39 | Outpatient (CLI) | payer MEDICARE ==
[2017-09-01] MEDS ORDERED: XYLOCAINE TOPICAL 4% TP ONE (09:05)
== END 2017-09-01 08:40 | disposition home or self-care (01) ==
LOC: WOUND 08:39
PROVIDERS: ATTEND Surgery
DX: I87.313 Chronic venous hypertension (idiopathic) with ulcer of bilateral lower extremity (principal); L97.322 Non-pressure chronic ulcer of left ankle with fat layer exposed; L97.812 Non-pressure chronic ulcer of other part of right lower leg with fat layer exposed; D50.8 Other iron deficiency anemias; M19.90 Unspecified osteoarthritis, unspecified site
CPT/HCPCS: 29580

== ENCOUNTER 2017-09-08 08:34 | Outpatient (CLI) | payer MEDICARE ==
[~2017-09-08 08:34] MED LIST changes: -CALAN ONE; -HEPARIN 10,000 UNITS/10 ML ONE; -HEPARIN/NS 5000 UNIT/500ML(CATH LAB) 500 ML IR ONE; -NITROGLYCERIN SYRINGE 0 ML ONE; -XYLOCAINE 2% INFILTRATI ONE; +XYLOCAINE TOPICAL 4% TP ONE
[2017-09-08] MEDS ORDERED: XYLOCAINE TOPICAL 4% TP ONE (08:40)
== END 2017-09-08 08:35 | disposition home or self-care (01) ==
LOC: WOUND 08:34
PROVIDERS: ATTEND Surgery
DX: I87.313 Chronic venous hypertension (idiopathic) with ulcer of bilateral lower extremity (principal); L97.322 Non-pressure chronic ulcer of left ankle with fat layer exposed; L97.812 Non-pressure chronic ulcer of other part of right lower leg with fat layer exposed; D50.8 Other iron deficiency anemias; M19.90 Unspecified osteoarthritis, unspecified site
CPT/HCPCS: 29580

== ENCOUNTER 2017-09-15 08:40 | Outpatient (CLI) | payer MEDICARE ==
[2017-09-15] MEDS ORDERED: XYLOCAINE TOPICAL 4% TP ONE (09:03)
== END 2017-09-15 08:41 | disposition home or self-care (01) ==
LOC: WOUND 08:40
PROVIDERS: ATTEND Surgery
DX: I87.312 Chronic venous hypertension (idiopathic) with ulcer of left lower extremity (principal); L97.322 Non-pressure chronic ulcer of left ankle with fat layer exposed; M19.90 Unspecified osteoarthritis, unspecified site
CPT/HCPCS: 29580

== ENCOUNTER 2017-09-16 16:50 | Emergency (ER) | payer MEDICARE ==
[2017-09-16 18:51] LABS: Basophils # (Auto) 0.1 K/mm3 (0.0-0.1); Basophils % (Auto) 1.1 % (0.0-1.8); Eosinophils # (Auto) 0.4 K/mm3 (0.0-0.4); Eosinophils % (Auto) 5.4 % (0.0-4.3); Hematocrit 33.6 % (35.5-45.6); Hemoglobin 11.3 gm/dl (11.8-15.2); Lymphocytes % (Auto) 15.4 % (13.4-35.0); Mean Corpuscular HGB Conc 34 % (32-34); Mean Corpuscular Hemoglobin 32 pg (28-32); Mean Corpuscular Volume 97 fl (84-94); Monocytes # (Auto) 0.6 K/mm3 (0.0-0.8); Monocytes % (Auto) 9.7 % (0.0-7.3); Platelet Count 267 K/mm3 (140-440); Red Blood Count 3.48 M/mm3 (3.65-5.03); Red Cell Distribution Width 14.3 % (13.2-15.2)
[2017-09-16 19:07] LABS: INR 1.01 (0.87-1.13); Partial Thromboplastin Time 28.8 Sec. (24.2-36.6)
[2017-09-16 19:12] LABS: Alanine Aminotransferase 13 units/L (7-56); Albumin 3.8 g/dL (3.9-5); BUN/Creatinine Ratio 25; Blood Urea Nitrogen 27 mg/dL (9-20); Calcium 8.7 mg/dL (8.4-10.2); Hemolysis Index 16; Lipase 60 units/L (13-60)
--- NOTE | 2017-09-16 20:05 | Ultrasound Report ---
FINAL REPORT PROCEDURE: US TESTICULAR DOPPLER COMP TECHNIQUE: Real-time gutierrez-scale and color flow Doppler sonography in multiple planes of the scrotum, testicles, and epididymes was performed. Velocity spectral waveform analysis Doppler imaging of the arterial inflow and venous outflow of the testicles was performed with image documentation. CPT 03499 and 74952 HISTORY: RIGHT TESTICULAR BLEEDING COMPARISON: No prior studies are available for comparison. FINDINGS: RIGHT TESTICLE: Size: 2.8 x 1.2 x 2.3 cm . Appearance: Small 8 millimeter cyst is noted on the right testis. Arterial blood flow: Normal spectral waveforms, flow velocities and color flow images.. Venous blood flow: Normal spectral waveforms and color flow images. Right epididymis: 3 millimeter cyst is present. Hydrocele: Small. LEFT TESTICLE Size: 2.3 x 1.1 x 1.6 cm . Appearance: Normal size and echotexture . Arterial blood flow: Normal spectral waveforms, flow velocities and color flow images.. Venous blood flow: Normal spectral waveforms and color flow images. Left epididymis: Normal size and echotexture . Hydrocele: None . There is a ovoid area in the midline scrotal subcutaneous area, measuring 0.4 x 0.2 x 0.9 centimeters, possibly a hematoma IMPRESSION: Possible small scrotal hematoma
--- NOTE | 2017-09-16 20:49 | Emergency Department Report ---
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 Patient denies any trauma or pain. He first noticed a bleeding stain on his pants and furniture. He is currently on Plavix. He has had urine output and denies hematuria. He denies melena or hematochezia. - Related Data Home Medications Medication Instructions Recorded Confirmed Last Taken Aspirin EC 1 tab PO DAILY 12/14/14 08/14/17 Unknown Citracal-Vit D + Magnesium Tab 1 tab PO DAILY 12/14/14 08/14/17 Unknown Finasteride 1 tab PO HS 12/14/14 08/14/17 Unknown Multivitamins 1 tab PO DAILY 12/14/14 08/14/17 Unknown Tamsulosin HCl 1 tab PO DAILY 12/14/14 08/14/17 Unknown Previous Rx's Medication Instructions Recorded Last Taken Type Clindamycin [Clindamycin CAP] 450 mg PO TID #7 day 12/04/15 Unknown Rx Vancomycin 1,500 mg IV Q24HR #1 vial 12/04/15 Unknown Rx Acetaminophen [Acetaminophen 650 mg CA Q4H PRN supp.rect 08/18/17 Unknown Rx SUPPOS] Clopidogrel [Plavix] 75 mg PO QDAY tablet 08/18/17 Unknown Rx Finasteride [Proscar] 5 mg PO QDAY tablet 08/18/17 Unknown Rx Tamsulosin [Flomax] 0.4 mg PO QDAY capsule 08/18/17 Unknown Rx Allergies Allergy/AdvReac Type Severity Reaction Status Date / Time No Known Allergies Allergy Unverified 12/14/14 11:04 ED Review of Systems ROS: Stated complaint: BLEEDING FROM TESTICLES Other details as noted in HPI Comment: All other systems reviewed and negative ED Past Medical Hx - Past Medical History Previous Medical History?: Yes Hx Hypertension: No Hx Heart Attack/AMI: No Hx Diabetes: No Hx GERD: Yes (PUD) Hx Liver Disease: No Hx Renal Disease: No Hx Sickle Cell Disease: No Hx Seizures: No Hx Asthma: No Hx COPD: No Additional medical history: enlarged prostate. UTI. Chronic leg wound - Surgical History Past Surgical History?: Yes Additional Surgical History: "Stomach ulcer surgery" COLON SURGERY - Social History Smoking Status: Never Smoker Substance Use Type: Prescribed - Medications Home Medications: Home Medications Medication Instructions Recorded Confirmed Last Taken Type Aspirin EC 1 tab PO DAILY 12/14/14 08/14/17 Unknown History Citracal-Vit D + Magnesium Tab 1 tab PO DAILY 12/14/14 08/14/17 Unknown History Finasteride 1 tab PO HS 12/14/14 08/14/17 Unknown History Multivitamins 1 tab PO DAILY 12/14/14 08/14/17 Unknown History Tamsulosin HCl 1 tab PO DAILY 12/14/14 08/14/17 Unknown History Clindamycin [Clindamycin CAP] 450 mg PO TID #7 day 12/04/15 08/14/17 Unknown Rx Vancomycin 1,500 mg IV Q24HR #1 vial 12/04/15 08/14/17 Unknown Rx Acetaminophen [Acetaminophen 650 mg CA Q4H PRN supp.rect 08/18/17 Unknown Rx SUPPOS] Clopidogrel [Plavix] 75 mg PO QDAY tablet 08/18/17 Unknown Rx Finasteride [Proscar] 5 mg PO QDAY tablet 08/18/17 Unknown Rx Tamsulosin [Flomax] 0.4 mg PO QDAY capsule 08/18/17 Unknown Rx ED Physical Exam - General Limitations: Physical Limitation - Other Other exam information: General: No limitations, patient is alert in no acute distress Head exam: Atraumatic, normocephalic Eyes exam: Normal appearance ENT: Moist mucous membrane, normal oropharynx Neck exam: Normal inspection, full range of motion Respiratory exam: Clear to auscultation bilateral, no wheezes, rales, crackles Cardiovascular: Normal rate and rhythm, normal heart sounds Abdomen: Soft, nondistended, and nontender, with normal bowel sounds, no rebound, or guarding. Midline vertical scar, nontender Rectal: Guaiac negative brown stool : Uncircumcised, no active bleeding, skin lesions, or abrasions noted to penis or scrotum. No swelling or tenderness. After clotted dried blood removed from the area it was no source of further bleeding. Extremity: Full range of motion normal inspection no deformity Back: Normal Inspection, full range of motion, no tenderness Neurologic: Alert, oriented x3, cranial nerves intact, no motor or sensory deficit Psychiatric: normal affect, normal mood Skin: Warm, dry, intact ED Course Vital Signs 09/16/17 18:13 Temperature 98.2 F Pulse Rate 80 Respiratory 20 Rate Blood Pressure 126/62 O2 Sat by Pulse 96 Oximetry - Reevaluation(s) Reevaluation #1: 09/16/17 22:17 gu area reexamined, still no source of bleeding identified ED Medical Decision Making - Lab Data Result diagrams: 09/16/17 18:26 09/16/17 18:26 Lab Results 09/16/17 09/16/17 09/16/17 Range/Units 18:26 18:26 18:26 WBC 6.7 (4.5-11.0) K/mm3 RBC 3.48 L (3.65-5.03) M/mm3 Hgb 11.3 L (11.8-15.2) gm/dl Hct 33.6 L (35.5-45.6) % MCV 97 H (84-94) fl MCH 32 (28-32) pg MCHC 34 (32-34) % RDW 14.3 (13.2-15.2) % Plt Count 267 (140-440) K/mm3 Lymph % (Auto) 15.4 (13.4-35.0) % [place] % (Auto) 9.7 H (0.0-7.3) % Eos % (Auto) 5.4 H (0.0-4.3) % Baso % (Auto) 1.1 (0.0-1.8) % Lymph # 1.0 L (1.2-5.4) K/mm3 [place] # 0.6 (0.0-0.8) K/mm3 Eos # 0.4 (0.0-0.4) K/mm3 Baso # 0.1 (0.0-0.1) K/mm3 Seg Neutrophils % 68.4 (40.0-70.0) % Seg Neutrophils # 4.6 (1.8-7.7) K/mm3 PT 13.8 (12.2-14.9) Sec. INR 1.01 (0.87-1.13) APTT 28.8 (24.2-36.6) Sec. Sodium 139 (137-145) mmol/L Potassium 4.5 (3.6-5.0) mmol/L Chloride 103.2 (98-107) mmol/L Carbon Dioxide 26 (22-30) mmol/L Anion Gap 14 mmol/L BUN 27 H (9-20) mg/dL Creatinine 1.1 (0.8-1.5) mg/dL Estimated GFR > 60 ml/min BUN/Creatinine Ratio 25 % Glucose 97 (75-100) mg/dL Calcium 8.7 (8.4-10.2) mg/dL Total Bilirubin 0.30 (0.1-1.2) mg/dL AST 17 (5-40) units/L ALT 13 (7-56) units/L Alkaline Phosphatase 57 (35-129) units/L Total Protein 6.1 L (6.3-8.2) g/dL Albumin 3.8 L (3.9-5) g/dL Albumin/Globulin Ratio 1.7 % Lipase 60 (13-60) units/L Urine Color (Yellow) Urine Turbidity (Clear) Urine pH (5.0-7.0) Ur Specific [place] (1.003-1.030) Urine Protein (Negative) mg/dL Urine Glucose (UA) (Negative) mg/dL Urine Ketones (Negative) mg/dL Urine Blood (Negative) Urine Nitrite (Negative) Urine Bilirubin (Negative) Urine Urobilinogen (<2.0) mg/dL Ur Leukocyte Esterase (Negative) Urine WBC (Auto) (0.0-6.0) /HPF Urine RBC (Auto) (0.0-6.0) /HPF U Epithel Cells (Auto) (0-13.0) /HPF Urine Mucus /HPF Blood Type Antibody Screen 09/16/17 09/16/17 Range/Units 18:26 21:33 WBC (4.5-11.0) K/mm3 RBC (3.65-5.03) M/mm3 Hgb (11.8-15.2) gm/dl Hct (35.5-45.6) % MCV (84-94) fl MCH (28-32) pg MCHC (32-34) % RDW (13.2-15.2) % Plt Count (140-440) K/mm3 Lymph % (Auto) (13.4-35.0) % [place] % (Auto) (0.0-7.3) % Eos % (Auto) (0.0-4.3) % Baso % (Auto) (0.0-1.8) % Lymph # (1.2-5.4) K/mm3 [place] # (0.0-0.8) K/mm3 Eos # (0.0-0.4) K/mm3 Baso # (0.0-0.1) K/mm3 Seg Neutrophils % (40.0-70.0) % Seg Neutrophils # (1.8-7.7) K/mm3 PT (12.2-14.9) Sec. INR (0.87-1.13) APTT (24.2-36.6) Sec. Sodium (137-145) mmol/L Potassium (3.6-5.0) mmol/L Chloride (98-107) mmol/L Carbon Dioxide (22-30) mmol/L Anion Gap mmol/L BUN (9-20) mg/dL Creatinine (0.8-1.5) mg/dL Estimated GFR ml/min BUN/Creatinine Ratio % Glucose (75-100) mg/dL Calcium (8.4-10.2) mg/dL Total Bilirubin (0.1-1.2) mg/dL AST (5-40) units/L ALT (7-56) units/L Alkaline Phosphatase (35-129) units/L Total Protein (6.3-8.2) g/dL Albumin (3.9-5) g/dL Albumin/Globulin Ratio % Lipase (13-60) units/L Urine Color Yellow (Yellow) Urine Turbidity Clear (Clear) Urine pH 5.0 (5.0-7.0) Ur Specific [place] 1.023 (1.003-1.030) Urine Protein <15 mg/dl (Negative) mg/dL Urine Glucose (UA) Neg (Negative) mg/dL Urine Ketones Neg (Negative) mg/dL Urine Blood Neg (Negative) Urine Nitrite Neg (Negative) Urine Bilirubin Neg (Negative) Urine Urobilinogen < 2.0 (<2.0) mg/dL Ur Leukocyte Esterase Neg (Negative) Urine WBC (Auto) 1.0 (0.0-6.0) /HPF Urine RBC (Auto) 4.0 (0.0-6.0) /HPF U Epithel Cells (Auto) < 1.0 (0-13.0) /HPF Urine Mucus Few /HPF Blood Type A NEGATIVE Antibody Screen Negative - Medical Decision Making bleeding no source of bleeding or skin lesion identified H&H stable No coagulopathy or thrombocytopenia Rectal exam negative. Guaiac negative stool UA with mild hematuria and negative UA Patient be discharged home with family - Differential Diagnosis abrasion, laceration, hematuria, GI bleed, coagulopathy Critical Care Time: No Critical care attestation.: If time is entered above; I have spent that time in minutes in the direct care of this critically ill patient, excluding procedure time. ED Disposition Clinical Impression: Genitourinary bleeding Disposition: TO HOME OR SELFCARE Is pt being admited?: No Does the pt Need Aspirin: No Condition: Stable Instructions: Abrasion (ED) Additional Instructions: No source of bleeding identified on exam today. Instructions for managing an abrasion provided. Continue to monitor the site for bleeding. Return if symptoms worsen as indicated by the discharge instructions. Referrals: PRIMARY CARE, [Primary Care Provider] - 3-5 Days Time of Disposition: 22:22
[2017-09-16 22:06] LABS: Bilirubin,Urine NEG (Negative); Blood,Urine NEG (Negative); Color,Urine Yellow (Yellow); Mucus,Urine FEW /HPF; Protein,Urine <15 mg/dL mg/dL (Negative); Urobilinogen,Urine < 2.0 mg/dL (<2.0)
[2017-09-16 23:20] VITALS: BP 117/67
== END 2017-09-16 23:21 | disposition home or self-care (01) ==
LOC: ED 16:50
DX: R31.9 Hematuria, unspecified (principal); K21.9 Gastro-esophageal reflux disease without esophagitis; Z79.82 Long term (current) use of aspirin
CPT/HCPCS: 36415; 80053; 81001; 82271; 83690; 85025; 85610; 85730; 86850; 86900; 86901; 93975

== ENCOUNTER 2017-09-29 08:38 | Outpatient (CLI) | payer MEDICARE ==
[2017-09-29] MEDS ORDERED: XYLOCAINE TOPICAL 4% TP ONE ×2 (09:11→09:16)
== END 2017-09-29 08:39 | disposition home or self-care (01) ==
LOC: WOUND 08:38
PROVIDERS: ATTEND Surgery
DX: I87.313 Chronic venous hypertension (idiopathic) with ulcer of bilateral lower extremity (principal); L97.812 Non-pressure chronic ulcer of other part of right lower leg with fat layer exposed; M19.90 Unspecified osteoarthritis, unspecified site
CPT/HCPCS: 29580

== ENCOUNTER 2017-10-06 08:37 | Outpatient (CLI) | payer MEDICARE ==
[2017-10-06] MEDS ORDERED: XYLOCAINE TOPICAL 4% TP ONE ×2 (09:25→17:00)
== END 2017-10-06 08:38 | disposition home or self-care (01) ==
LOC: WOUND 08:37
PROVIDERS: ATTEND Surgery
DX: I87.313 Chronic venous hypertension (idiopathic) with ulcer of bilateral lower extremity (principal); L97.322 Non-pressure chronic ulcer of left ankle with fat layer exposed; L97.312 Non-pressure chronic ulcer of right ankle with fat layer exposed; M19.90 Unspecified osteoarthritis, unspecified site
CPT/HCPCS: 29580

== ENCOUNTER 2017-10-13 08:38 | Outpatient (CLI) | payer MEDICARE ==
[2017-10-13] MEDS ORDERED: XYLOCAINE TOPICAL 4% TP ONE ×2 (09:16→09:17)
[2017-10-13] MEDS ORDERED: AD OINTMENT TP ONE (09:17)
[2017-10-13] MEDS ORDERED: AD OINTMENT TP PRN (09:17)
== END 2017-10-13 08:39 | disposition home or self-care (01) ==
LOC: WOUND 08:38
PROVIDERS: ATTEND Surgery
DX: I87.313 Chronic venous hypertension (idiopathic) with ulcer of bilateral lower extremity (principal); L97.322 Non-pressure chronic ulcer of left ankle with fat layer exposed; L97.312 Non-pressure chronic ulcer of right ankle with fat layer exposed; M19.90 Unspecified osteoarthritis, unspecified site
CPT/HCPCS: 29580; A6250

== ENCOUNTER 2017-10-20 10:43 | Outpatient (CLI) | payer MEDICARE ==
[~2017-10-20 10:43] MED LIST changes: +AD OINTMENT TP PRN
== END 2017-10-20 10:44 | disposition home or self-care (01) ==
LOC: WOUND 10:43
PROVIDERS: ATTEND Surgery
DX: I87.313 Chronic venous hypertension (idiopathic) with ulcer of bilateral lower extremity (principal); L97.322 Non-pressure chronic ulcer of left ankle with fat layer exposed; L97.312 Non-pressure chronic ulcer of right ankle with fat layer exposed; M19.90 Unspecified osteoarthritis, unspecified site
CPT/HCPCS: 29580; A6250

== ENCOUNTER 2017-10-27 08:42 | Outpatient (CLI) | payer MEDICARE ==
[2017-10-27] MEDS ORDERED: XYLOCAINE TOPICAL 4% TP ONE (08:56)
== END 2017-10-27 08:43 | disposition home or self-care (01) ==
LOC: WOUND 08:42
PROVIDERS: ATTEND Surgery
DX: I87.313 Chronic venous hypertension (idiopathic) with ulcer of bilateral lower extremity (principal); L97.321 Non-pressure chronic ulcer of left ankle limited to breakdown of skin; L97.812 Non-pressure chronic ulcer of other part of right lower leg with fat layer exposed; M19.90 Unspecified osteoarthritis, unspecified site; Z85.46 Personal history of malignant neoplasm of prostate
CPT/HCPCS: 29580

== ENCOUNTER 2017-11-03 08:45 | Outpatient (CLI) | payer MEDICARE ==
[2017-11-03] MEDS ORDERED: XYLOCAINE TOPICAL 4% TP ONE ×2 (09:07→09:14)
== END 2017-11-03 08:46 | disposition home or self-care (01) ==
LOC: WOUND 08:45
PROVIDERS: ATTEND Surgery
DX: I87.313 Chronic venous hypertension (idiopathic) with ulcer of bilateral lower extremity (principal); L97.321 Non-pressure chronic ulcer of left ankle limited to breakdown of skin; L97.311 Non-pressure chronic ulcer of right ankle limited to breakdown of skin; M19.90 Unspecified osteoarthritis, unspecified site; Z85.46 Personal history of malignant neoplasm of prostate
CPT/HCPCS: 29580

== ENCOUNTER 2017-11-10 08:42 | Outpatient (CLI) | payer MEDICARE ==
[2017-11-10] MEDS ORDERED: ZEMURON IV ONE (08:59)
[2017-11-10] MEDS ORDERED: XYLOCAINE TOPICAL 4% TP ONE (09:05)
== END 2017-11-10 08:43 | disposition home or self-care (01) ==
LOC: WOUND 08:42
PROVIDERS: ATTEND Surgery
DX: I87.313 Chronic venous hypertension (idiopathic) with ulcer of bilateral lower extremity (principal); L97.322 Non-pressure chronic ulcer of left ankle with fat layer exposed; L97.318 Non-pressure chronic ulcer of right ankle with other specified severity; M19.90 Unspecified osteoarthritis, unspecified site; Z85.46 Personal history of malignant neoplasm of prostate
CPT/HCPCS: 29580

== ENCOUNTER 2017-11-17 08:41 | Outpatient (CLI) | payer MEDICARE ==
[2017-11-17] MEDS ORDERED: XYLOCAINE TOPICAL 2% 5ML ONE (09:01)
[2017-11-17] MEDS ORDERED: XYLOCAINE TOPICAL 2% 5ML TP ONE (09:10)
== END 2017-11-17 08:42 | disposition home or self-care (01) ==
LOC: WOUND 08:41
PROVIDERS: ATTEND Surgery
DX: I87.313 Chronic venous hypertension (idiopathic) with ulcer of bilateral lower extremity (principal); L97.322 Non-pressure chronic ulcer of left ankle with fat layer exposed; L97.318 Non-pressure chronic ulcer of right ankle with other specified severity; M19.90 Unspecified osteoarthritis, unspecified site; Z85.46 Personal history of malignant neoplasm of prostate
CPT/HCPCS: 29580

== ENCOUNTER 2017-11-24 08:42 | Outpatient (CLI) | payer MEDICARE ==
[2017-11-24] MEDS ORDERED: XYLOCAINE TOPICAL 4% TP ONE ×2 (09:13→09:39)
[2017-11-24] MEDS ORDERED: AD OINTMENT TP ONE (09:39)
[2017-11-25] MEDS ORDERED: AD OINTMENT TP SCH (10:00)
== END 2017-11-24 08:43 | disposition home or self-care (01) ==
LOC: WOUND 08:42
PROVIDERS: ATTEND Surgery
DX: I87.313 Chronic venous hypertension (idiopathic) with ulcer of bilateral lower extremity (principal); L97.322 Non-pressure chronic ulcer of left ankle with fat layer exposed; L97.318 Non-pressure chronic ulcer of right ankle with other specified severity; M19.90 Unspecified osteoarthritis, unspecified site; Z85.46 Personal history of malignant neoplasm of prostate
CPT/HCPCS: 97597; A6250

== ENCOUNTER 2017-12-01 08:53 | Outpatient (CLI) | payer MEDICARE ==
[~2017-12-01 08:53] MED LIST changes: -AD OINTMENT TP PRN; +NACL 0.9% 1000 ML 1,000 ML ONE; +NACL 0.9% 500 ML IR ONE; -XYLOCAINE TOPICAL 4% TP ONE
[2017-12-01] MEDS ORDERED: XYLOCAINE TOPICAL 4% TP ONE (09:05)
== END 2017-12-01 08:54 | disposition home or self-care (01) ==
LOC: WOUND 08:53
PROVIDERS: ATTEND Surgery
DX: I87.313 Chronic venous hypertension (idiopathic) with ulcer of bilateral lower extremity (principal); L97.322 Non-pressure chronic ulcer of left ankle with fat layer exposed; L97.318 Non-pressure chronic ulcer of right ankle with other specified severity; M19.90 Unspecified osteoarthritis, unspecified site; Z85.46 Personal history of malignant neoplasm of prostate
CPT/HCPCS: 29580; J7030

== ENCOUNTER 2017-12-08 08:42 | Outpatient (CLI) | payer MEDICARE ==
[2017-12-08] MEDS ORDERED: XYLOCAINE TOPICAL 4% TP ONE ×2 (09:14→09:30)
[2017-12-08] MEDS ORDERED: AD OINTMENT TP ONE (09:50)
[2017-12-08] MEDS ORDERED: AD OINTMENT TP SCH (15:00)
== END 2017-12-08 08:43 | disposition home or self-care (01) ==
LOC: WOUND 08:42
PROVIDERS: ATTEND Surgery
DX: I87.313 Chronic venous hypertension (idiopathic) with ulcer of bilateral lower extremity (principal); L97.329 Non-pressure chronic ulcer of left ankle with unspecified severity; L97.312 Non-pressure chronic ulcer of right ankle with fat layer exposed; M19.90 Unspecified osteoarthritis, unspecified site; Z85.46 Personal history of malignant neoplasm of prostate
CPT/HCPCS: 29580; 29581; A6250

== ENCOUNTER 2017-12-15 08:40 | Outpatient (CLI) | payer MEDICARE ==
[2017-12-15] MEDS ORDERED: XYLOCAINE TOPICAL 2% 5ML TP ONE (08:42)
[2017-12-15] MEDS ORDERED: AD OINTMENT TP PRN (09:14)
== END 2017-12-15 08:41 | disposition home or self-care (01) ==
LOC: WOUND 08:40
PROVIDERS: ATTEND Surgery
DX: I87.313 Chronic venous hypertension (idiopathic) with ulcer of bilateral lower extremity (principal); L97.812 Non-pressure chronic ulcer of other part of right lower leg with fat layer exposed; L97.822 Non-pressure chronic ulcer of other part of left lower leg with fat layer exposed; M19.90 Unspecified osteoarthritis, unspecified site; Z85.46 Personal history of malignant neoplasm of prostate
CPT/HCPCS: 29581; A6250

== ENCOUNTER 2017-12-22 08:32 | Outpatient (CLI) | payer MEDICARE ==
[2017-12-22] MEDS ORDERED: AD OINTMENT TP ONE (09:18)
== END 2017-12-22 08:33 | disposition home or self-care (01) ==
LOC: WOUND 08:32
PROVIDERS: ATTEND Surgery
DX: I87.313 Chronic venous hypertension (idiopathic) with ulcer of bilateral lower extremity (principal); L97.812 Non-pressure chronic ulcer of other part of right lower leg with fat layer exposed; L97.822 Non-pressure chronic ulcer of other part of left lower leg with fat layer exposed; M19.90 Unspecified osteoarthritis, unspecified site; Z85.46 Personal history of malignant neoplasm of prostate
CPT/HCPCS: 99203; 99214; A6250; G0463; G0463-25

== ENCOUNTER 2018-01-05 08:43 | Outpatient (CLI) | payer MEDICARE ==
[~2018-01-05 08:43] MED LIST changes: -NACL 0.9% 1000 ML 1,000 ML ONE; +NACL 0.9% 250 ML ONE; -NACL 0.9% 500 ML IR ONE
[2018-01-05] MEDS ORDERED: AD OINTMENT TP PRN (09:06)
== END 2018-01-05 08:44 | disposition home or self-care (01) ==
LOC: WOUND 08:43
PROVIDERS: ATTEND Surgery
DX: I87.313 Chronic venous hypertension (idiopathic) with ulcer of bilateral lower extremity (principal); L97.812 Non-pressure chronic ulcer of other part of right lower leg with fat layer exposed; L97.822 Non-pressure chronic ulcer of other part of left lower leg with fat layer exposed; M19.90 Unspecified osteoarthritis, unspecified site
CPT/HCPCS: 99213; A6250; G0463

== ENCOUNTER 2018-02-16 08:40 | Outpatient (CLI) | payer MEDICARE ==
[2018-02-16] MEDS ORDERED: XYLOCAINE TOPICAL 2% 5ML ONE (09:28)
[2018-02-16] MEDS ORDERED: XYLOCAINE TOPICAL 2% 5ML TP ONE (09:33)
[2018-02-16] MEDS ORDERED: AD OINTMENT TP ONE (09:49)
[2018-02-16] MEDS ORDERED: NACL 0.9% 250 ML ONE (11:33)
[2018-02-17] MEDS ORDERED: NACL 0.9% 250 ML ONE (14:40)
[2018-02-19] MEDS ORDERED: AD OINTMENT TP SCH (12:00)
== END 2018-02-16 08:41 | disposition home or self-care (01) ==
LOC: WOUND 08:40
PROVIDERS: ATTEND Surgery
DX: I87.313 Chronic venous hypertension (idiopathic) with ulcer of bilateral lower extremity (principal); L97.812 Non-pressure chronic ulcer of other part of right lower leg with fat layer exposed; L97.822 Non-pressure chronic ulcer of other part of left lower leg with fat layer exposed; M19.90 Unspecified osteoarthritis, unspecified site; Z85.46 Personal history of malignant neoplasm of prostate
CPT/HCPCS: A6250

== ENCOUNTER 2018-04-13 08:37 | Outpatient (CLI) | payer MEDICARE | END 2018-04-13 08:38 | disposition home or self-care (01) | LOC: WOUND 08:37 | CPT/HCPCS: 11721 ==

== ENCOUNTER 2018-04-20 08:42 | Outpatient (CLI) | payer MEDICARE | END 2018-04-20 08:43 | disposition home or self-care (01) | LOC: WOUND 08:42 | CPT/HCPCS: 29580 ==

== ENCOUNTER 2018-04-27 08:45 | Outpatient (CLI) | payer MEDICARE | END 2018-04-27 08:46 | disposition home or self-care (01) | LOC: WOUND 08:45 | PROVIDERS: ATTEND Surgery | DX: I87.313 Chronic venous hypertension (idiopathic) with ulcer of bilateral lower extremity (principal); L97.812 Non-pressure chronic ulcer of other part of right lower leg with fat layer exposed; L97.822 Non-pressure chronic ulcer of other part of left lower leg with fat layer exposed; I87.8 Other specified disorders of veins | CPT/HCPCS: 29580 ==

== ENCOUNTER 2018-06-08 08:45 | Outpatient (CLI) | payer MEDICARE ==
[2018-06-08] MEDS ORDERED: XYLOCAINE TOPICAL 4% TP ONE (09:02)
[2018-06-08] MEDS ORDERED: AD OINTMENT TP PRN (09:02)
== END 2018-06-08 08:46 | disposition home or self-care (01) ==
LOC: WOUND 08:45
PROVIDERS: ATTEND Surgery
DX: I87.313 Chronic venous hypertension (idiopathic) with ulcer of bilateral lower extremity (principal); L97.822 Non-pressure chronic ulcer of other part of left lower leg with fat layer exposed; L97.812 Non-pressure chronic ulcer of other part of right lower leg with fat layer exposed; L97.312 Non-pressure chronic ulcer of right ankle with fat layer exposed; I87.2 Venous insufficiency (chronic) (peripheral); M19.90 Unspecified osteoarthritis, unspecified site
CPT/HCPCS: 29580; A6250; C5276

== ENCOUNTER 2018-06-11 13:09 | Outpatient (CLI) | payer MEDICARE | END 2018-06-11 13:10 | disposition home or self-care (01) | LOC: WOUND 13:09 | PROVIDERS: ATTEND Surgery | DX: I87.313 Chronic venous hypertension (idiopathic) with ulcer of bilateral lower extremity (principal); L97.812 Non-pressure chronic ulcer of other part of right lower leg with fat layer exposed; L97.822 Non-pressure chronic ulcer of other part of left lower leg with fat layer exposed; L97.311 Non-pressure chronic ulcer of right ankle limited to breakdown of skin; D50.8 Other iron deficiency anemias; N40.1 Benign prostatic hyperplasia with lower urinary tract symptoms; I87.2 Venous insufficiency (chronic) (peripheral); M19.90 Unspecified osteoarthritis, unspecified site | CPT/HCPCS: 29580 ==

== ENCOUNTER 2018-06-15 08:40 | Outpatient (CLI) | payer MEDICARE | END 2018-06-15 08:41 | disposition home or self-care (01) | LOC: WOUND 08:40 | PROVIDERS: ATTEND Surgery | DX: I87.313 Chronic venous hypertension (idiopathic) with ulcer of bilateral lower extremity (principal); L97.812 Non-pressure chronic ulcer of other part of right lower leg with fat layer exposed; L97.822 Non-pressure chronic ulcer of other part of left lower leg with fat layer exposed; L97.311 Non-pressure chronic ulcer of right ankle limited to breakdown of skin; I87.2 Venous insufficiency (chronic) (peripheral); M19.90 Unspecified osteoarthritis, unspecified site | CPT/HCPCS: 29581 ==

== ENCOUNTER 2018-06-22 08:40 | Outpatient (CLI) | payer MEDICARE | END 2018-06-22 08:41 | disposition home or self-care (01) | LOC: WOUND 08:40 | PROVIDERS: ATTEND Surgery | DX: I87.313 Chronic venous hypertension (idiopathic) with ulcer of bilateral lower extremity (principal); L97.312 Non-pressure chronic ulcer of right ankle with fat layer exposed; L97.822 Non-pressure chronic ulcer of other part of left lower leg with fat layer exposed; I87.2 Venous insufficiency (chronic) (peripheral); M19.90 Unspecified osteoarthritis, unspecified site ==

== ENCOUNTER 2018-06-29 08:45 | Outpatient (CLI) | payer MEDICARE | END 2018-06-29 08:46 | disposition home or self-care (01) | LOC: WOUND 08:45 | PROVIDERS: ATTEND Surgery | DX: I87.313 Chronic venous hypertension (idiopathic) with ulcer of bilateral lower extremity (principal); L97.822 Non-pressure chronic ulcer of other part of left lower leg with fat layer exposed; L97.311 Non-pressure chronic ulcer of right ankle limited to breakdown of skin; L97.812 Non-pressure chronic ulcer of other part of right lower leg with fat layer exposed; I87.2 Venous insufficiency (chronic) (peripheral); M19.90 Unspecified osteoarthritis, unspecified site ==

== ENCOUNTER 2018-07-06 08:45 | Outpatient (CLI) | payer MEDICARE | END 2018-07-06 08:46 | disposition home or self-care (01) | LOC: WOUND 08:45 | PROVIDERS: ATTEND Surgery | DX: I87.313 Chronic venous hypertension (idiopathic) with ulcer of bilateral lower extremity (principal); L97.812 Non-pressure chronic ulcer of other part of right lower leg with fat layer exposed; L97.822 Non-pressure chronic ulcer of other part of left lower leg with fat layer exposed; M19.90 Unspecified osteoarthritis, unspecified site; I87.2 Venous insufficiency (chronic) (peripheral) ==

== ENCOUNTER 2018-07-13 08:58 | Outpatient (CLI) | payer MEDICARE ==
[2018-07-13] MEDS ORDERED: XYLOCAINE TOPICAL 4% TP ONE (10:00)
== END 2018-07-13 08:59 | disposition home or self-care (01) ==
LOC: WOUND 08:58
PROVIDERS: ATTEND Surgery
DX: I87.313 Chronic venous hypertension (idiopathic) with ulcer of bilateral lower extremity (principal); L97.812 Non-pressure chronic ulcer of other part of right lower leg with fat layer exposed; L97.822 Non-pressure chronic ulcer of other part of left lower leg with fat layer exposed; M19.90 Unspecified osteoarthritis, unspecified site

== ENCOUNTER 2018-07-20 08:34 | Outpatient (CLI) | payer MEDICARE | END 2018-07-20 08:35 | disposition home or self-care (01) | LOC: WOUND 08:34 | PROVIDERS: ATTEND Surgery | DX: I87.313 Chronic venous hypertension (idiopathic) with ulcer of bilateral lower extremity (principal); L97.812 Non-pressure chronic ulcer of other part of right lower leg with fat layer exposed; L97.822 Non-pressure chronic ulcer of other part of left lower leg with fat layer exposed; M19.90 Unspecified osteoarthritis, unspecified site ==

== ENCOUNTER 2018-07-27 08:44 | Outpatient (CLI) | payer MEDICARE ==
[2018-07-27] MEDS ORDERED: XYLOCAINE TOPICAL 4% TP ONE (10:00)
== END 2018-07-27 08:45 | disposition home or self-care (01) ==
LOC: WOUND 08:44
PROVIDERS: ATTEND Surgery
DX: I87.313 Chronic venous hypertension (idiopathic) with ulcer of bilateral lower extremity (principal); L97.822 Non-pressure chronic ulcer of other part of left lower leg with fat layer exposed; L97.312 Non-pressure chronic ulcer of right ankle with fat layer exposed; S81.811D Laceration without foreign body, right lower leg, subsequent encounter; I87.2 Venous insufficiency (chronic) (peripheral); X58.XXXD Exposure to other specified factors, subsequent encounter

== ENCOUNTER 2018-08-03 08:38 | Outpatient (CLI) | payer MEDICARE ==
[2018-08-03] MEDS ORDERED: XYLOCAINE TOPICAL 4% TP ONE (09:30)
[2018-08-03] MEDS ORDERED: AD OINTMENT TP SCH (10:00)
== END 2018-08-03 08:39 | disposition home or self-care (01) ==
LOC: WOUND 08:38
PROVIDERS: ATTEND Surgery
DX: I87.313 Chronic venous hypertension (idiopathic) with ulcer of bilateral lower extremity (principal); L97.822 Non-pressure chronic ulcer of other part of left lower leg with fat layer exposed; L97.312 Non-pressure chronic ulcer of right ankle with fat layer exposed; M19.90 Unspecified osteoarthritis, unspecified site
CPT/HCPCS: 29581; A6250

== ENCOUNTER 2018-08-10 08:37 | Outpatient (CLI) | payer MEDICARE | END 2018-08-10 08:38 | disposition home or self-care (01) | LOC: WOUND 08:37 | PROVIDERS: ATTEND Surgery | DX: I87.313 Chronic venous hypertension (idiopathic) with ulcer of bilateral lower extremity (principal); L97.822 Non-pressure chronic ulcer of other part of left lower leg with fat layer exposed; L97.312 Non-pressure chronic ulcer of right ankle with fat layer exposed; S81.811D Laceration without foreign body, right lower leg, subsequent encounter; M19.90 Unspecified osteoarthritis, unspecified site; I87.2 Venous insufficiency (chronic) (peripheral); X58.XXXD Exposure to other specified factors, subsequent encounter ==

== ENCOUNTER 2018-08-17 08:42 | Outpatient (CLI) | payer MEDICARE | END 2018-08-17 08:43 | disposition home or self-care (01) | LOC: WOUND 08:42 | PROVIDERS: ATTEND Surgery | DX: I87.313 Chronic venous hypertension (idiopathic) with ulcer of bilateral lower extremity (principal); L97.822 Non-pressure chronic ulcer of other part of left lower leg with fat layer exposed; L97.312 Non-pressure chronic ulcer of right ankle with fat layer exposed; I87.2 Venous insufficiency (chronic) (peripheral); M19.90 Unspecified osteoarthritis, unspecified site ==

== ENCOUNTER 2018-08-25 08:54 | Outpatient (CLI) | payer MEDICARE ==
[2018-08-25] MEDS ORDERED: XYLOCAINE TOPICAL 4% TP ONE (09:16)
== END 2018-08-25 08:55 | disposition home or self-care (01) ==
LOC: WOUND 08:54
PROVIDERS: ATTEND Surgery
DX: I87.313 Chronic venous hypertension (idiopathic) with ulcer of bilateral lower extremity (principal); L97.822 Non-pressure chronic ulcer of other part of left lower leg with fat layer exposed; L97.312 Non-pressure chronic ulcer of right ankle with fat layer exposed; I87.2 Venous insufficiency (chronic) (peripheral); M19.90 Unspecified osteoarthritis, unspecified site
CPT/HCPCS: 93925

== ENCOUNTER 2018-08-25 10:39 | Outpatient (CLI) | payer MEDICARE ==
--- NOTE | 2018-08-25 22:38 | Vascular Lab Report ---
PROCEDURE: US BILATERAL LOWER EXTREMITY ARTERIAL NONINVASIVE PHYSIOLOGIC DOPPLER STUDY TECHNIQUE: Arterial waveforms and segmental limb pressures were attempted bilaterally in the common and superficial femoral, popliteal, posterior and anterior tibial/dorsalis pedis arteries. Ankle brac hial indices were attempted in the distal posterior tibial and anterior tibial/dorsalis pedis arterie s bilaterally. CPT 16641 HISTORY: Pain COMPARISONS: None . FINDINGS: RIGHT LOWER EXTREMITY: Waveforms: Triphasic . Segmental pressure gradients: No significant segmental reduction . Brachial pressures: No side to side gradient . Ankle brachial index (LATONIA): LEFT LOWER EXTREMITY: Waveforms: Triphasic . Segmental pressure gradients: No significant segmental reduction . Brachial pressures: No side to side gradient . Ankle brachial index (LATONIA): IMPRESSION: No evidence of significant arterial insufficiency in the lower extremities. This document is electronically signed by Zeke Hough MD., August 25 2018 10:36:52 PM ET
== END 2018-08-25 10:40 | disposition home or self-care (01) ==
LOC: VAS 10:39
PROVIDERS: ATTEND Surgery
DX: L97.912 Non-pressure chronic ulcer of unspecified part of right lower leg with fat layer exposed (principal); L97.922 Non-pressure chronic ulcer of unspecified part of left lower leg with fat layer exposed; K21.9 Gastro-esophageal reflux disease without esophagitis
CPT/HCPCS: 93925

== ENCOUNTER 2018-08-31 08:38 | Outpatient (CLI) | payer MEDICARE ==
[2018-08-31] MEDS ORDERED: SILVER NITRATE TP ONE (09:00)
[2018-08-31] MEDS ORDERED: XYLOCAINE TOPICAL 4% TP ONE (09:00)
== END 2018-08-31 08:39 | disposition home or self-care (01) ==
LOC: WOUND 08:38
PROVIDERS: ATTEND Surgery
DX: I87.313 Chronic venous hypertension (idiopathic) with ulcer of bilateral lower extremity (principal); L97.822 Non-pressure chronic ulcer of other part of left lower leg with fat layer exposed; L97.312 Non-pressure chronic ulcer of right ankle with fat layer exposed; I87.2 Venous insufficiency (chronic) (peripheral); M19.90 Unspecified osteoarthritis, unspecified site

== ENCOUNTER 2018-09-07 08:30 | Outpatient (CLI) | payer MEDICARE | END 2018-09-07 08:31 | disposition home or self-care (01) | LOC: WOUND 08:30 | PROVIDERS: ATTEND Surgery | DX: I87.313 Chronic venous hypertension (idiopathic) with ulcer of bilateral lower extremity (principal); L97.822 Non-pressure chronic ulcer of other part of left lower leg with fat layer exposed; L97.312 Non-pressure chronic ulcer of right ankle with fat layer exposed; M19.90 Unspecified osteoarthritis, unspecified site ==

== ENCOUNTER 2018-09-10 08:25 | Outpatient (CLI) | payer MEDICARE | END 2018-09-10 08:26 | disposition home or self-care (01) | LOC: WOUND 08:25 | PROVIDERS: ATTEND Surgery | DX: I87.313 Chronic venous hypertension (idiopathic) with ulcer of bilateral lower extremity (principal); L97.322 Non-pressure chronic ulcer of left ankle with fat layer exposed; L97.312 Non-pressure chronic ulcer of right ankle with fat layer exposed; M19.90 Unspecified osteoarthritis, unspecified site ==

== ENCOUNTER 2018-09-17 08:42 | Outpatient (CLI) | payer MEDICARE ==
[2018-09-17] MEDS ORDERED: XYLOCAINE TOPICAL 4% TP ONE (09:30)
== END 2018-09-17 08:43 | disposition home or self-care (01) ==
LOC: WOUND 08:42
PROVIDERS: ATTEND Surgery
DX: I87.313 Chronic venous hypertension (idiopathic) with ulcer of bilateral lower extremity (principal); L97.312 Non-pressure chronic ulcer of right ankle with fat layer exposed; L97.322 Non-pressure chronic ulcer of left ankle with fat layer exposed; M19.90 Unspecified osteoarthritis, unspecified site; I87.2 Venous insufficiency (chronic) (peripheral); D50.8 Other iron deficiency anemias; N40.1 Benign prostatic hyperplasia with lower urinary tract symptoms

== ENCOUNTER 2018-09-22 08:31 | Outpatient (CLI) | payer MEDICARE ==
[2018-09-22] MEDS ORDERED: XYLOCAINE TOPICAL 4% TP ONE (09:00)
== END 2018-09-22 08:32 | disposition home or self-care (01) ==
LOC: WOUND 08:31
PROVIDERS: ATTEND Surgery
DX: I87.313 Chronic venous hypertension (idiopathic) with ulcer of bilateral lower extremity (principal); L97.312 Non-pressure chronic ulcer of right ankle with fat layer exposed; L97.322 Non-pressure chronic ulcer of left ankle with fat layer exposed; M19.90 Unspecified osteoarthritis, unspecified site; I87.2 Venous insufficiency (chronic) (peripheral); D50.8 Other iron deficiency anemias; N40.1 Benign prostatic hyperplasia with lower urinary tract symptoms

== ENCOUNTER 2018-09-28 08:36 | Outpatient (CLI) | payer MEDICARE ==
[2018-09-28] MEDS ORDERED: XYLOCAINE TOPICAL 4% TP ONE (09:00)
[2018-09-28] MEDS ORDERED: AD OINTMENT TP SCH (10:00)
== END 2018-09-28 08:37 | disposition home or self-care (01) ==
LOC: WOUND 08:36
PROVIDERS: ATTEND Surgery
DX: I87.313 Chronic venous hypertension (idiopathic) with ulcer of bilateral lower extremity (principal); L97.312 Non-pressure chronic ulcer of right ankle with fat layer exposed; L97.322 Non-pressure chronic ulcer of left ankle with fat layer exposed; M19.90 Unspecified osteoarthritis, unspecified site; I87.2 Venous insufficiency (chronic) (peripheral); D50.8 Other iron deficiency anemias; N40.1 Benign prostatic hyperplasia with lower urinary tract symptoms
CPT/HCPCS: A6250

== ENCOUNTER 2018-10-06 08:27 | Outpatient (CLI) | payer MEDICARE ==
[2018-10-06] MEDS ORDERED: XYLOCAINE TOPICAL 4% TP ONE (08:52)
[2018-10-06] MEDS ORDERED: SILVER NITRATE TP ONE (08:52)
== END 2018-10-06 08:28 | disposition home or self-care (01) ==
LOC: WOUND 08:27
PROVIDERS: ATTEND Surgery
DX: I87.313 Chronic venous hypertension (idiopathic) with ulcer of bilateral lower extremity (principal); L97.312 Non-pressure chronic ulcer of right ankle with fat layer exposed; L97.322 Non-pressure chronic ulcer of left ankle with fat layer exposed; M19.90 Unspecified osteoarthritis, unspecified site; I87.2 Venous insufficiency (chronic) (peripheral); D50.8 Other iron deficiency anemias; N40.1 Benign prostatic hyperplasia with lower urinary tract symptoms

== ENCOUNTER 2018-10-09 13:05 | Outpatient (CLI) | payer MEDICARE | END 2018-10-09 13:06 | disposition home or self-care (01) | LOC: WOUND 13:05 | PROVIDERS: ATTEND Surgery | DX: I87.313 Chronic venous hypertension (idiopathic) with ulcer of bilateral lower extremity (principal); L97.312 Non-pressure chronic ulcer of right ankle with fat layer exposed; L97.322 Non-pressure chronic ulcer of left ankle with fat layer exposed; M19.90 Unspecified osteoarthritis, unspecified site; I87.2 Venous insufficiency (chronic) (peripheral); D50.8 Other iron deficiency anemias; N40.1 Benign prostatic hyperplasia with lower urinary tract symptoms ==

== ENCOUNTER 2018-10-12 08:30 | Outpatient (CLI) | payer MEDICARE | END 2018-10-12 08:31 | disposition home or self-care (01) | LOC: WOUND 08:30 | PROVIDERS: ATTEND Surgery | DX: I87.313 Chronic venous hypertension (idiopathic) with ulcer of bilateral lower extremity (principal); L97.312 Non-pressure chronic ulcer of right ankle with fat layer exposed; L97.322 Non-pressure chronic ulcer of left ankle with fat layer exposed; M19.90 Unspecified osteoarthritis, unspecified site; I87.2 Venous insufficiency (chronic) (peripheral); D50.8 Other iron deficiency anemias; N40.1 Benign prostatic hyperplasia with lower urinary tract symptoms ==

== ENCOUNTER 2018-10-15 08:31 | Outpatient (CLI) | payer MEDICARE | END 2018-10-15 08:32 | disposition home or self-care (01) | LOC: WOUND 08:31 | PROVIDERS: ATTEND Surgery | DX: I87.313 Chronic venous hypertension (idiopathic) with ulcer of bilateral lower extremity (principal); L97.312 Non-pressure chronic ulcer of right ankle with fat layer exposed; L97.322 Non-pressure chronic ulcer of left ankle with fat layer exposed; M19.90 Unspecified osteoarthritis, unspecified site; I87.2 Venous insufficiency (chronic) (peripheral); D50.8 Other iron deficiency anemias; N40.1 Benign prostatic hyperplasia with lower urinary tract symptoms ==

== ENCOUNTER 2018-10-19 08:29 | Outpatient (CLI) | payer MEDICARE | END 2018-10-19 08:30 | disposition home or self-care (01) | LOC: WOUND 08:29 | PROVIDERS: ATTEND Surgery | DX: I87.313 Chronic venous hypertension (idiopathic) with ulcer of bilateral lower extremity (principal); L97.312 Non-pressure chronic ulcer of right ankle with fat layer exposed; L97.322 Non-pressure chronic ulcer of left ankle with fat layer exposed; M19.90 Unspecified osteoarthritis, unspecified site; I87.2 Venous insufficiency (chronic) (peripheral); D50.8 Other iron deficiency anemias; N40.1 Benign prostatic hyperplasia with lower urinary tract symptoms ==

== ENCOUNTER 2018-10-22 13:11 | Outpatient (CLI) | payer MEDICARE | END 2018-10-22 13:12 | disposition home or self-care (01) | LOC: WOUND 13:11 | PROVIDERS: ATTEND Surgery | DX: I87.313 Chronic venous hypertension (idiopathic) with ulcer of bilateral lower extremity (principal); L97.312 Non-pressure chronic ulcer of right ankle with fat layer exposed; L97.322 Non-pressure chronic ulcer of left ankle with fat layer exposed; M19.90 Unspecified osteoarthritis, unspecified site; I87.2 Venous insufficiency (chronic) (peripheral); D50.8 Other iron deficiency anemias; N40.1 Benign prostatic hyperplasia with lower urinary tract symptoms ==

== ENCOUNTER 2018-10-26 08:31 | Outpatient (CLI) | payer MEDICARE ==
[2018-10-26] MEDS ORDERED: AD OINTMENT TP PRN (09:00)
[2018-10-26] MEDS ORDERED: XYLOCAINE TOPICAL 4% TP ONE (09:30)
== END 2018-10-26 08:32 | disposition home or self-care (01) ==
LOC: WOUND 08:31
PROVIDERS: ATTEND Surgery
DX: I87.313 Chronic venous hypertension (idiopathic) with ulcer of bilateral lower extremity (principal); L97.312 Non-pressure chronic ulcer of right ankle with fat layer exposed; L97.322 Non-pressure chronic ulcer of left ankle with fat layer exposed; I87.2 Venous insufficiency (chronic) (peripheral); M19.90 Unspecified osteoarthritis, unspecified site
CPT/HCPCS: A6250

== ENCOUNTER 2018-10-30 12:58 | Outpatient (CLI) | payer MEDICARE | END 2018-10-30 12:59 | disposition home or self-care (01) | LOC: WOUND 12:58 | PROVIDERS: ATTEND Surgery | DX: I87.313 Chronic venous hypertension (idiopathic) with ulcer of bilateral lower extremity (principal); L97.312 Non-pressure chronic ulcer of right ankle with fat layer exposed; L97.322 Non-pressure chronic ulcer of left ankle with fat layer exposed; I87.2 Venous insufficiency (chronic) (peripheral); M19.90 Unspecified osteoarthritis, unspecified site ==

== ENCOUNTER 2018-11-02 08:26 | Outpatient (CLI) | payer MEDICARE | END 2018-11-02 08:27 | disposition home or self-care (01) | LOC: WOUND 08:26 | PROVIDERS: ATTEND Surgery | DX: I87.313 Chronic venous hypertension (idiopathic) with ulcer of bilateral lower extremity (principal); L97.312 Non-pressure chronic ulcer of right ankle with fat layer exposed; L97.322 Non-pressure chronic ulcer of left ankle with fat layer exposed; L97.812 Non-pressure chronic ulcer of other part of right lower leg with fat layer exposed; I87.2 Venous insufficiency (chronic) (peripheral); M19.90 Unspecified osteoarthritis, unspecified site ==

== ENCOUNTER 2018-11-05 08:47 | Outpatient (CLI) | payer MEDICARE | END 2018-11-05 08:48 | disposition home or self-care (01) | LOC: WOUND 08:47 | PROVIDERS: ATTEND Surgery | DX: I87.313 Chronic venous hypertension (idiopathic) with ulcer of bilateral lower extremity (principal); L97.312 Non-pressure chronic ulcer of right ankle with fat layer exposed; L97.322 Non-pressure chronic ulcer of left ankle with fat layer exposed; L97.812 Non-pressure chronic ulcer of other part of right lower leg with fat layer exposed; I87.2 Venous insufficiency (chronic) (peripheral); M19.90 Unspecified osteoarthritis, unspecified site ==

== ENCOUNTER 2018-11-09 08:28 | Outpatient (CLI) | payer MEDICARE | END 2018-11-09 08:29 | disposition home or self-care (01) | LOC: WOUND 08:28 | PROVIDERS: ATTEND Surgery | DX: I87.313 Chronic venous hypertension (idiopathic) with ulcer of bilateral lower extremity (principal); L97.312 Non-pressure chronic ulcer of right ankle with fat layer exposed; L97.322 Non-pressure chronic ulcer of left ankle with fat layer exposed; L97.812 Non-pressure chronic ulcer of other part of right lower leg with fat layer exposed; I87.2 Venous insufficiency (chronic) (peripheral); M19.90 Unspecified osteoarthritis, unspecified site ==

== ENCOUNTER 2018-11-12 08:34 | Outpatient (CLI) | payer MEDICARE | END 2018-11-12 08:35 | disposition home or self-care (01) | LOC: WOUND 08:34 | PROVIDERS: ATTEND Surgery | DX: I87.313 Chronic venous hypertension (idiopathic) with ulcer of bilateral lower extremity (principal); L97.312 Non-pressure chronic ulcer of right ankle with fat layer exposed; L97.322 Non-pressure chronic ulcer of left ankle with fat layer exposed; L97.812 Non-pressure chronic ulcer of other part of right lower leg with fat layer exposed; I87.2 Venous insufficiency (chronic) (peripheral); M19.90 Unspecified osteoarthritis, unspecified site ==

== ENCOUNTER 2018-11-16 08:42 | Outpatient (CLI) | payer MEDICARE ==
[2018-11-16] MEDS ORDERED: XYLOCAINE TOPICAL 4% TP ONE (08:49)
== END 2018-11-16 08:43 | disposition home or self-care (01) ==
LOC: WOUND 08:42
PROVIDERS: ATTEND Surgery
DX: I87.313 Chronic venous hypertension (idiopathic) with ulcer of bilateral lower extremity (principal); L97.312 Non-pressure chronic ulcer of right ankle with fat layer exposed; L97.322 Non-pressure chronic ulcer of left ankle with fat layer exposed; L97.812 Non-pressure chronic ulcer of other part of right lower leg with fat layer exposed; I87.2 Venous insufficiency (chronic) (peripheral); M19.90 Unspecified osteoarthritis, unspecified site

== ENCOUNTER 2018-11-19 13:06 | Outpatient (CLI) | payer MEDICARE | END 2018-11-19 13:07 | disposition home or self-care (01) | LOC: WOUND 13:06 | PROVIDERS: ATTEND Surgery | DX: I87.313 Chronic venous hypertension (idiopathic) with ulcer of bilateral lower extremity (principal); L97.312 Non-pressure chronic ulcer of right ankle with fat layer exposed; L97.322 Non-pressure chronic ulcer of left ankle with fat layer exposed; L97.812 Non-pressure chronic ulcer of other part of right lower leg with fat layer exposed; I87.2 Venous insufficiency (chronic) (peripheral); M19.90 Unspecified osteoarthritis, unspecified site | CPT/HCPCS: 29581 ==

== ENCOUNTER 2018-11-23 08:34 | Outpatient (CLI) | payer MEDICARE | END 2018-11-23 08:35 | disposition home or self-care (01) | LOC: WOUND 08:34 | PROVIDERS: ATTEND Surgery | DX: I87.313 Chronic venous hypertension (idiopathic) with ulcer of bilateral lower extremity (principal); L97.312 Non-pressure chronic ulcer of right ankle with fat layer exposed; L97.322 Non-pressure chronic ulcer of left ankle with fat layer exposed; L97.812 Non-pressure chronic ulcer of other part of right lower leg with fat layer exposed; I87.2 Venous insufficiency (chronic) (peripheral); M19.90 Unspecified osteoarthritis, unspecified site ==

== ENCOUNTER 2018-11-26 13:12 | Outpatient (CLI) | payer MEDICARE | END 2018-11-26 13:13 | disposition home or self-care (01) | LOC: WOUND 13:12 | PROVIDERS: ATTEND Surgery | DX: I87.313 Chronic venous hypertension (idiopathic) with ulcer of bilateral lower extremity (principal); L97.312 Non-pressure chronic ulcer of right ankle with fat layer exposed; L97.322 Non-pressure chronic ulcer of left ankle with fat layer exposed; L97.812 Non-pressure chronic ulcer of other part of right lower leg with fat layer exposed; I87.2 Venous insufficiency (chronic) (peripheral); M19.90 Unspecified osteoarthritis, unspecified site | CPT/HCPCS: 29581 ==

== ENCOUNTER 2018-11-30 08:38 | Outpatient (CLI) | payer MEDICARE ==
[2018-11-30] MEDS ORDERED: XYLOCAINE TOPICAL 4% TP ONE (09:00)
[2018-11-30] MEDS ORDERED: NACL 0.9% 1000 ML 0 ML ONE (16:29)
== END 2018-11-30 08:39 | disposition home or self-care (01) ==
LOC: WOUND 08:38
PROVIDERS: ATTEND Surgery
DX: I87.313 Chronic venous hypertension (idiopathic) with ulcer of bilateral lower extremity (principal); L97.312 Non-pressure chronic ulcer of right ankle with fat layer exposed; L97.322 Non-pressure chronic ulcer of left ankle with fat layer exposed; L97.812 Non-pressure chronic ulcer of other part of right lower leg with fat layer exposed; I87.2 Venous insufficiency (chronic) (peripheral); M19.90 Unspecified osteoarthritis, unspecified site
CPT/HCPCS: J7030

== ENCOUNTER 2018-12-03 13:08 | Outpatient (CLI) | payer MEDICARE | END 2018-12-03 13:09 | disposition home or self-care (01) | LOC: WOUND 13:08 | PROVIDERS: ATTEND Surgery | DX: I87.313 Chronic venous hypertension (idiopathic) with ulcer of bilateral lower extremity (principal); L97.312 Non-pressure chronic ulcer of right ankle with fat layer exposed; L97.322 Non-pressure chronic ulcer of left ankle with fat layer exposed; L89.891 Pressure ulcer of other site, stage 1; L97.511 Non-pressure chronic ulcer of other part of right foot limited to breakdown of skin; I87.2 Venous insufficiency (chronic) (peripheral); D50.8 Other iron deficiency anemias; N40.1 Benign prostatic hyperplasia with lower urinary tract symptoms; M19.90 Unspecified osteoarthritis, unspecified site ==

== ENCOUNTER 2018-12-07 08:41 | Outpatient (CLI) | payer MEDICARE ==
[2018-12-07] MEDS ORDERED: XYLOCAINE TOPICAL 4% TP ONE (09:07)
[2018-12-07] MEDS ORDERED: SODIUM CHLORIDE FLUSH SYRINGE 10 ML IV PRN (10:00)
== END 2018-12-07 08:42 | disposition home or self-care (01) ==
LOC: WOUND 08:41
PROVIDERS: ATTEND Surgery
DX: I87.313 Chronic venous hypertension (idiopathic) with ulcer of bilateral lower extremity (principal); L97.312 Non-pressure chronic ulcer of right ankle with fat layer exposed; L97.322 Non-pressure chronic ulcer of left ankle with fat layer exposed; L89.891 Pressure ulcer of other site, stage 1; L97.511 Non-pressure chronic ulcer of other part of right foot limited to breakdown of skin; I87.2 Venous insufficiency (chronic) (peripheral); D50.8 Other iron deficiency anemias; N40.1 Benign prostatic hyperplasia with lower urinary tract symptoms; M19.90 Unspecified osteoarthritis, unspecified site
CPT/HCPCS: 15271; 15272; 29581; 97597; Q4158

== ENCOUNTER 2018-12-14 08:43 | Outpatient (CLI) | payer MEDICARE ==
[2018-12-14] MEDS ORDERED: SODIUM CHLORIDE FLUSH SYRINGE 10 ML IV ONE (09:30)
== END 2018-12-14 08:44 | disposition home or self-care (01) ==
LOC: WOUND 08:43
PROVIDERS: ATTEND Surgery
DX: I87.313 Chronic venous hypertension (idiopathic) with ulcer of bilateral lower extremity (principal); L97.312 Non-pressure chronic ulcer of right ankle with fat layer exposed; L97.322 Non-pressure chronic ulcer of left ankle with fat layer exposed; L89.891 Pressure ulcer of other site, stage 1; L97.511 Non-pressure chronic ulcer of other part of right foot limited to breakdown of skin; I87.2 Venous insufficiency (chronic) (peripheral); D50.8 Other iron deficiency anemias; N40.1 Benign prostatic hyperplasia with lower urinary tract symptoms; M19.90 Unspecified osteoarthritis, unspecified site
CPT/HCPCS: 15275; 15276; 29581; Q4158

== ENCOUNTER 2018-12-21 08:34 | Outpatient (CLI) | payer MEDICARE ==
[2018-12-21] MEDS ORDERED: SODIUM CHLORIDE FLUSH SYRINGE 10 ML IV PRN (09:00)
[2018-12-21] MEDS ORDERED: XYLOCAINE TOPICAL 4% TP ONE (09:00)
== END 2018-12-21 08:35 | disposition home or self-care (01) ==
LOC: WOUND 08:34
PROVIDERS: ATTEND Surgery
DX: I87.313 Chronic venous hypertension (idiopathic) with ulcer of bilateral lower extremity (principal); L97.312 Non-pressure chronic ulcer of right ankle with fat layer exposed; L97.322 Non-pressure chronic ulcer of left ankle with fat layer exposed; I87.2 Venous insufficiency (chronic) (peripheral); M19.90 Unspecified osteoarthritis, unspecified site
CPT/HCPCS: 15271; 15272; 29581; Q4158

== ENCOUNTER 2018-12-29 09:06 | Outpatient (CLI) | payer MEDICARE ==
[2018-12-29] MEDS ORDERED: SODIUM CHLORIDE FLUSH SYRINGE 10 ML IV ONE (10:00)
== END 2018-12-29 09:07 | disposition home or self-care (01) ==
LOC: WOUND 09:06
PROVIDERS: ATTEND Surgery
DX: I87.313 Chronic venous hypertension (idiopathic) with ulcer of bilateral lower extremity (principal); L97.312 Non-pressure chronic ulcer of right ankle with fat layer exposed; L97.322 Non-pressure chronic ulcer of left ankle with fat layer exposed; I87.2 Venous insufficiency (chronic) (peripheral); M19.90 Unspecified osteoarthritis, unspecified site
CPT/HCPCS: 15271; 29581; Q4158; 15275

== ENCOUNTER 2019-01-04 08:33 | Outpatient (CLI) | payer MEDICARE ==
[2019-01-04] MEDS ORDERED: XYLOCAINE TOPICAL 4% TP ONE (08:43)
[2019-01-04] MEDS ORDERED: SODIUM CHLORIDE FLUSH SYRINGE 10 ML IV PRN (08:44)
== END 2019-01-04 08:34 | disposition home or self-care (01) ==
LOC: WOUND 08:33
PROVIDERS: ATTEND Surgery
DX: I87.313 Chronic venous hypertension (idiopathic) with ulcer of bilateral lower extremity (principal); L97.312 Non-pressure chronic ulcer of right ankle with fat layer exposed; L97.322 Non-pressure chronic ulcer of left ankle with fat layer exposed; M19.90 Unspecified osteoarthritis, unspecified site
CPT/HCPCS: 15271; 15272; 29581; 87075; 87116; Q4158

== ENCOUNTER 2019-01-11 08:38 | Outpatient (CLI) | payer MEDICARE ==
[2019-01-11] MEDS ORDERED: SODIUM CHLORIDE FLUSH SYRINGE 10 ML IV ONE (09:30)
== END 2019-01-11 08:39 | disposition home or self-care (01) ==
LOC: WOUND 08:38
PROVIDERS: ATTEND Surgery
DX: I87.313 Chronic venous hypertension (idiopathic) with ulcer of bilateral lower extremity (principal); L97.312 Non-pressure chronic ulcer of right ankle with fat layer exposed; L97.322 Non-pressure chronic ulcer of left ankle with fat layer exposed; M19.90 Unspecified osteoarthritis, unspecified site
CPT/HCPCS: 15271; 15272; 29581; Q4158

== ENCOUNTER 2019-01-18 08:30 | Outpatient (CLI) | payer MEDICARE ==
[2019-01-18] MEDS ORDERED: LIDOCAINE (4%) 40 MG/ML TOPICAL SOLN 50 ML BOTTLE TP ONE (09:30)
== END 2019-01-18 08:31 | disposition home or self-care (01) ==
LOC: WOUND 08:30
PROVIDERS: ATTEND Surgery
DX: I87.313 Chronic venous hypertension (idiopathic) with ulcer of bilateral lower extremity (principal); L97.312 Non-pressure chronic ulcer of right ankle with fat layer exposed; L97.322 Non-pressure chronic ulcer of left ankle with fat layer exposed; D50.8 Other iron deficiency anemias; N40.1 Benign prostatic hyperplasia with lower urinary tract symptoms; M19.90 Unspecified osteoarthritis, unspecified site
CPT/HCPCS: 15271; 15272; 29581; Q4158

== ENCOUNTER 2019-01-25 08:37 | Outpatient (CLI) | payer MEDICARE ==
[2019-01-25] MEDS ORDERED: LIDOCAINE (4%) 40 MG/ML TOPICAL SOLN 50 ML BOTTLE TP ONE (09:30)
== END 2019-01-25 08:38 | disposition home or self-care (01) ==
LOC: WOUND 08:37
PROVIDERS: ATTEND Surgery
DX: I87.313 Chronic venous hypertension (idiopathic) with ulcer of bilateral lower extremity (principal); L97.312 Non-pressure chronic ulcer of right ankle with fat layer exposed; L97.322 Non-pressure chronic ulcer of left ankle with fat layer exposed; I87.2 Venous insufficiency (chronic) (peripheral); M19.90 Unspecified osteoarthritis, unspecified site
CPT/HCPCS: 15271; 15272; 29581; Q4158

== ENCOUNTER 2019-01-28 13:21 | Outpatient (CLI) | payer MEDICARE | END 2019-01-28 13:22 | disposition home or self-care (01) | LOC: WOUND 13:21 | PROVIDERS: ATTEND Surgery | DX: I87.313 Chronic venous hypertension (idiopathic) with ulcer of bilateral lower extremity (principal); L97.312 Non-pressure chronic ulcer of right ankle with fat layer exposed; L97.322 Non-pressure chronic ulcer of left ankle with fat layer exposed; I87.2 Venous insufficiency (chronic) (peripheral); M19.90 Unspecified osteoarthritis, unspecified site | CPT/HCPCS: 29581 ==

== ENCOUNTER 2019-02-01 08:30 | Outpatient (CLI) | payer MEDICARE ==
[2019-02-01] MEDS ORDERED: LIDOCAINE (4%) 40 MG/ML TOPICAL SOLN 50 ML BOTTLE TP ONE (09:30)
== END 2019-02-01 08:31 | disposition home or self-care (01) ==
LOC: WOUND 08:30
PROVIDERS: ATTEND Surgery
DX: I87.313 Chronic venous hypertension (idiopathic) with ulcer of bilateral lower extremity (principal); L97.312 Non-pressure chronic ulcer of right ankle with fat layer exposed; L97.322 Non-pressure chronic ulcer of left ankle with fat layer exposed; I87.2 Venous insufficiency (chronic) (peripheral); M19.90 Unspecified osteoarthritis, unspecified site
CPT/HCPCS: 15271; 15272; 29581; Q4158

== ENCOUNTER 2019-02-05 10:08 | Outpatient (CLI) | payer MEDICARE | END 2019-02-05 10:09 | disposition home or self-care (01) | LOC: WOUND 10:08 | PROVIDERS: ATTEND Surgery | DX: I87.313 Chronic venous hypertension (idiopathic) with ulcer of bilateral lower extremity (principal); L97.312 Non-pressure chronic ulcer of right ankle with fat layer exposed; L97.322 Non-pressure chronic ulcer of left ankle with fat layer exposed; D50.8 Other iron deficiency anemias; N40.1 Benign prostatic hyperplasia with lower urinary tract symptoms; I87.2 Venous insufficiency (chronic) (peripheral); M19.90 Unspecified osteoarthritis, unspecified site ==

== ENCOUNTER 2019-02-08 08:42 | Outpatient (CLI) | payer MEDICARE ==
[2019-02-08] MEDS ORDERED: LIDOCAINE (4%) 40 MG/ML TOPICAL SOLN 50 ML BOTTLE TP ONE (09:30)
== END 2019-02-08 08:43 | disposition home or self-care (01) ==
LOC: WOUND 08:42
PROVIDERS: ATTEND Surgery
DX: I87.313 Chronic venous hypertension (idiopathic) with ulcer of bilateral lower extremity (principal); L97.312 Non-pressure chronic ulcer of right ankle with fat layer exposed; L97.322 Non-pressure chronic ulcer of left ankle with fat layer exposed; I87.2 Venous insufficiency (chronic) (peripheral); M19.90 Unspecified osteoarthritis, unspecified site

== ENCOUNTER 2019-02-11 13:48 | Outpatient (CLI) | payer MEDICARE | END 2019-02-11 13:49 | disposition home or self-care (01) | LOC: WOUND 13:48 | PROVIDERS: ATTEND Surgery | DX: I87.313 Chronic venous hypertension (idiopathic) with ulcer of bilateral lower extremity (principal); L97.312 Non-pressure chronic ulcer of right ankle with fat layer exposed; L97.322 Non-pressure chronic ulcer of left ankle with fat layer exposed; M19.90 Unspecified osteoarthritis, unspecified site ==

== ENCOUNTER 2019-02-15 08:44 | Outpatient (CLI) | payer MEDICARE ==
[2019-02-15] MEDS ORDERED: SODIUM CHLORIDE FLUSH SYRINGE 10 ML IV ONE (11:18)
== END 2019-02-15 08:45 | disposition home or self-care (01) ==
LOC: WOUND 08:44
PROVIDERS: ATTEND Surgery
DX: I87.313 Chronic venous hypertension (idiopathic) with ulcer of bilateral lower extremity (principal); L97.812 Non-pressure chronic ulcer of other part of right lower leg with fat layer exposed; L97.822 Non-pressure chronic ulcer of other part of left lower leg with fat layer exposed; I87.2 Venous insufficiency (chronic) (peripheral); M19.90 Unspecified osteoarthritis, unspecified site
CPT/HCPCS: 15271; 29581; Q4196

== ENCOUNTER 2019-02-22 08:40 | Outpatient (CLI) | payer MEDICARE ==
[2019-02-22] MEDS ORDERED: SILVER NITRATE APPLICATOR 1 EA TP ONE (09:30)
[2019-02-22] MEDS ORDERED: LIDOCAINE (4%) 40 MG/ML TOPICAL SOLN 50 ML BOTTLE TP ONE (09:30)
[2019-02-22] MEDS ORDERED: PHENYLEPHRINE/NS 1,000 MCG/10 ML SYRINGE (OR USE) IV ONE (14:13)
== END 2019-02-22 08:41 | disposition home or self-care (01) ==
LOC: WOUND 08:40
PROVIDERS: ATTEND Surgery
DX: I87.313 Chronic venous hypertension (idiopathic) with ulcer of bilateral lower extremity (principal); L97.812 Non-pressure chronic ulcer of other part of right lower leg with fat layer exposed; L97.822 Non-pressure chronic ulcer of other part of left lower leg with fat layer exposed; I87.2 Venous insufficiency (chronic) (peripheral); M19.90 Unspecified osteoarthritis, unspecified site
CPT/HCPCS: J2370

== ENCOUNTER 2019-02-25 10:48 | Outpatient (CLI) | payer MEDICARE | END 2019-02-25 10:49 | disposition home or self-care (01) | LOC: WOUND 10:48 | PROVIDERS: ATTEND Surgery | DX: I87.313 Chronic venous hypertension (idiopathic) with ulcer of bilateral lower extremity (principal); L97.812 Non-pressure chronic ulcer of other part of right lower leg with fat layer exposed; L97.822 Non-pressure chronic ulcer of other part of left lower leg with fat layer exposed; I87.2 Venous insufficiency (chronic) (peripheral); M19.90 Unspecified osteoarthritis, unspecified site ==

== ENCOUNTER 2019-03-01 08:33 | Outpatient (CLI) | payer MEDICARE ==
[2019-03-01] MEDS ORDERED: LIDOCAINE (4%) 40 MG/ML TOPICAL SOLN 50 ML BOTTLE TP ONE (09:00)
== END 2019-03-01 08:34 | disposition home or self-care (01) ==
LOC: WOUND 08:33
PROVIDERS: ATTEND Surgery
DX: I87.313 Chronic venous hypertension (idiopathic) with ulcer of bilateral lower extremity (principal); L97.812 Non-pressure chronic ulcer of other part of right lower leg with fat layer exposed; L97.822 Non-pressure chronic ulcer of other part of left lower leg with fat layer exposed; M19.90 Unspecified osteoarthritis, unspecified site; I87.2 Venous insufficiency (chronic) (peripheral)

== ENCOUNTER 2019-03-04 13:34 | Outpatient (CLI) | payer MEDICARE | END 2019-03-04 13:35 | disposition home or self-care (01) | LOC: WOUND 13:34 | PROVIDERS: ATTEND Surgery | DX: I87.313 Chronic venous hypertension (idiopathic) with ulcer of bilateral lower extremity (principal); L97.812 Non-pressure chronic ulcer of other part of right lower leg with fat layer exposed; L97.822 Non-pressure chronic ulcer of other part of left lower leg with fat layer exposed; M19.90 Unspecified osteoarthritis, unspecified site; I87.2 Venous insufficiency (chronic) (peripheral) ==

== ENCOUNTER 2019-03-08 14:03 | Outpatient (CLI) | payer MEDICARE ==
[2019-03-08] MEDS ORDERED: LIDOCAINE (4%) 40 MG/ML TOPICAL SOLN 50 ML BOTTLE TP ONE (14:35)
[2019-03-08] MEDS ORDERED: SILVER NITRATE APPLICATOR 1 EA TP ONE (14:36)
== END 2019-03-08 14:04 | disposition home or self-care (01) ==
LOC: WOUND 14:03
PROVIDERS: ATTEND Surgery
DX: I87.313 Chronic venous hypertension (idiopathic) with ulcer of bilateral lower extremity (principal); L97.812 Non-pressure chronic ulcer of other part of right lower leg with fat layer exposed; L97.822 Non-pressure chronic ulcer of other part of left lower leg with fat layer exposed; M19.90 Unspecified osteoarthritis, unspecified site; I87.2 Venous insufficiency (chronic) (peripheral)

== ENCOUNTER 2019-03-11 14:05 | Outpatient (CLI) | payer MEDICARE | END 2019-03-11 14:06 | disposition home or self-care (01) | LOC: WOUND 14:05 | PROVIDERS: ATTEND Surgery | DX: I87.313 Chronic venous hypertension (idiopathic) with ulcer of bilateral lower extremity (principal); L97.812 Non-pressure chronic ulcer of other part of right lower leg with fat layer exposed; L97.822 Non-pressure chronic ulcer of other part of left lower leg with fat layer exposed; M19.90 Unspecified osteoarthritis, unspecified site; I87.2 Venous insufficiency (chronic) (peripheral) | CPT/HCPCS: 29581 ==

== ENCOUNTER 2019-03-15 08:39 | Outpatient (CLI) | payer MEDICARE ==
[2019-03-15] MEDS ORDERED: LIDOCAINE (4%) 40 MG/ML TOPICAL SOLN 50 ML BOTTLE TP ONE (09:30)
== END 2019-03-15 08:40 | disposition home or self-care (01) ==
LOC: WOUND 08:39
PROVIDERS: ATTEND Surgery
DX: I87.313 Chronic venous hypertension (idiopathic) with ulcer of bilateral lower extremity (principal); L97.812 Non-pressure chronic ulcer of other part of right lower leg with fat layer exposed; L97.822 Non-pressure chronic ulcer of other part of left lower leg with fat layer exposed; M19.90 Unspecified osteoarthritis, unspecified site; I87.2 Venous insufficiency (chronic) (peripheral)

== ENCOUNTER 2019-03-18 13:58 | Outpatient (CLI) | payer MEDICARE | END 2019-03-18 13:59 | disposition home or self-care (01) | LOC: WOUND 13:58 | PROVIDERS: ATTEND Surgery | DX: I87.313 Chronic venous hypertension (idiopathic) with ulcer of bilateral lower extremity (principal); L97.812 Non-pressure chronic ulcer of other part of right lower leg with fat layer exposed; L97.822 Non-pressure chronic ulcer of other part of left lower leg with fat layer exposed; M19.90 Unspecified osteoarthritis, unspecified site; I87.2 Venous insufficiency (chronic) (peripheral) ==

== ENCOUNTER 2019-03-22 08:40 | Outpatient (CLI) | payer MEDICARE ==
[2019-03-22] MEDS ORDERED: LIDOCAINE (4%) 40 MG/ML TOPICAL SOLN 50 ML BOTTLE TP ONE (09:30)
== END 2019-03-22 08:41 | disposition home or self-care (01) ==
LOC: WOUND 08:40
PROVIDERS: ATTEND Surgery
DX: I87.313 Chronic venous hypertension (idiopathic) with ulcer of bilateral lower extremity (principal); L97.312 Non-pressure chronic ulcer of right ankle with fat layer exposed; L97.322 Non-pressure chronic ulcer of left ankle with fat layer exposed; L97.812 Non-pressure chronic ulcer of other part of right lower leg with fat layer exposed; L97.822 Non-pressure chronic ulcer of other part of left lower leg with fat layer exposed; M19.90 Unspecified osteoarthritis, unspecified site; I87.2 Venous insufficiency (chronic) (peripheral)

== ENCOUNTER 2019-03-29 08:22 | Outpatient (CLI) | payer MEDICARE ==
[2019-03-29] MEDS ORDERED: LIDOCAINE (4%) 40 MG/ML TOPICAL SOLN 50 ML BOTTLE TP ONE (09:00)
== END 2019-03-29 08:23 | disposition home or self-care (01) ==
LOC: WOUND 08:22
PROVIDERS: ATTEND Surgery
DX: I87.313 Chronic venous hypertension (idiopathic) with ulcer of bilateral lower extremity (principal); L97.312 Non-pressure chronic ulcer of right ankle with fat layer exposed; L97.322 Non-pressure chronic ulcer of left ankle with fat layer exposed; L97.812 Non-pressure chronic ulcer of other part of right lower leg with fat layer exposed; L97.822 Non-pressure chronic ulcer of other part of left lower leg with fat layer exposed; M19.90 Unspecified osteoarthritis, unspecified site; I87.2 Venous insufficiency (chronic) (peripheral)

== ENCOUNTER 2019-04-01 13:00 | Outpatient (CLI) | payer MEDICARE | END 2019-04-01 13:01 | disposition home or self-care (01) | LOC: WOUND 13:00 | PROVIDERS: ATTEND Surgery | DX: I87.313 Chronic venous hypertension (idiopathic) with ulcer of bilateral lower extremity (principal); L97.312 Non-pressure chronic ulcer of right ankle with fat layer exposed; L97.322 Non-pressure chronic ulcer of left ankle with fat layer exposed; L97.822 Non-pressure chronic ulcer of other part of left lower leg with fat layer exposed; L97.812 Non-pressure chronic ulcer of other part of right lower leg with fat layer exposed; I87.2 Venous insufficiency (chronic) (peripheral); D50.8 Other iron deficiency anemias; M19.90 Unspecified osteoarthritis, unspecified site; N40.1 Benign prostatic hyperplasia with lower urinary tract symptoms ==

== ENCOUNTER 2019-04-05 08:38 | Outpatient (CLI) | payer MEDICARE ==
[2019-04-05] MEDS ORDERED: LIDOCAINE (4%) 40 MG/ML TOPICAL SOLN 50 ML BOTTLE TP ONE (09:00)
== END 2019-04-05 08:39 | disposition home or self-care (01) ==
LOC: WOUND 08:38
PROVIDERS: ATTEND Surgery
DX: I87.313 Chronic venous hypertension (idiopathic) with ulcer of bilateral lower extremity (principal); L97.312 Non-pressure chronic ulcer of right ankle with fat layer exposed; L97.322 Non-pressure chronic ulcer of left ankle with fat layer exposed; L97.822 Non-pressure chronic ulcer of other part of left lower leg with fat layer exposed; L97.812 Non-pressure chronic ulcer of other part of right lower leg with fat layer exposed; I87.2 Venous insufficiency (chronic) (peripheral); D50.8 Other iron deficiency anemias; M19.90 Unspecified osteoarthritis, unspecified site; N40.1 Benign prostatic hyperplasia with lower urinary tract symptoms

== ENCOUNTER 2019-04-08 13:43 | Outpatient (CLI) | payer MEDICARE | END 2019-04-08 13:44 | disposition home or self-care (01) | LOC: WOUND 13:43 | PROVIDERS: ATTEND Surgery | DX: I87.313 Chronic venous hypertension (idiopathic) with ulcer of bilateral lower extremity (principal); L97.312 Non-pressure chronic ulcer of right ankle with fat layer exposed; L97.322 Non-pressure chronic ulcer of left ankle with fat layer exposed; L97.822 Non-pressure chronic ulcer of other part of left lower leg with fat layer exposed; L97.812 Non-pressure chronic ulcer of other part of right lower leg with fat layer exposed; I87.2 Venous insufficiency (chronic) (peripheral); D50.8 Other iron deficiency anemias; M19.90 Unspecified osteoarthritis, unspecified site; N40.1 Benign prostatic hyperplasia with lower urinary tract symptoms ==

== ENCOUNTER 2019-04-12 08:49 | Outpatient (CLI) | payer MEDICARE ==
[2019-04-12] MEDS ORDERED: LIDOCAINE (4%) 40 MG/ML TOPICAL SOLN 50 ML BOTTLE TP ONE (08:52)
[2019-04-12] MEDS ORDERED: VITAMIN A & D OINT 56.7 GM TP SCH (10:30)
== END 2019-04-12 08:50 | disposition home or self-care (01) ==
LOC: WOUND 08:49
PROVIDERS: ATTEND Surgery
DX: I87.313 Chronic venous hypertension (idiopathic) with ulcer of bilateral lower extremity (principal); L97.312 Non-pressure chronic ulcer of right ankle with fat layer exposed; L97.322 Non-pressure chronic ulcer of left ankle with fat layer exposed; L97.822 Non-pressure chronic ulcer of other part of left lower leg with fat layer exposed; L97.812 Non-pressure chronic ulcer of other part of right lower leg with fat layer exposed; D50.8 Other iron deficiency anemias; M19.90 Unspecified osteoarthritis, unspecified site; N40.1 Benign prostatic hyperplasia with lower urinary tract symptoms
CPT/HCPCS: A6250

== ENCOUNTER 2019-04-15 13:44 | Outpatient (CLI) | payer MEDICARE | END 2019-04-15 13:45 | disposition home or self-care (01) | LOC: WOUND 13:44 | PROVIDERS: ATTEND Surgery | DX: I87.313 Chronic venous hypertension (idiopathic) with ulcer of bilateral lower extremity (principal); L97.312 Non-pressure chronic ulcer of right ankle with fat layer exposed; L97.322 Non-pressure chronic ulcer of left ankle with fat layer exposed; L97.822 Non-pressure chronic ulcer of other part of left lower leg with fat layer exposed; L97.812 Non-pressure chronic ulcer of other part of right lower leg with fat layer exposed; D50.8 Other iron deficiency anemias; M19.90 Unspecified osteoarthritis, unspecified site; N40.1 Benign prostatic hyperplasia with lower urinary tract symptoms ==

== ENCOUNTER 2019-04-19 08:48 | Outpatient (CLI) | payer MEDICARE ==
[2019-04-19] MEDS ORDERED: LIDOCAINE (4%) 40 MG/ML TOPICAL SOLN 50 ML BOTTLE TP ONE (10:00)
== END 2019-04-19 08:49 | disposition home or self-care (01) ==
LOC: WOUND 08:48
PROVIDERS: ATTEND Surgery
DX: I87.313 Chronic venous hypertension (idiopathic) with ulcer of bilateral lower extremity (principal); L97.312 Non-pressure chronic ulcer of right ankle with fat layer exposed; L97.322 Non-pressure chronic ulcer of left ankle with fat layer exposed; D50.8 Other iron deficiency anemias; M19.90 Unspecified osteoarthritis, unspecified site; N40.1 Benign prostatic hyperplasia with lower urinary tract symptoms
CPT/HCPCS: 29581

== ENCOUNTER 2019-04-22 14:01 | Outpatient (CLI) | payer MEDICARE | END 2019-04-22 14:02 | disposition home or self-care (01) | LOC: WOUND 14:01 | PROVIDERS: ATTEND Surgery | DX: I87.313 Chronic venous hypertension (idiopathic) with ulcer of bilateral lower extremity (principal); L97.312 Non-pressure chronic ulcer of right ankle with fat layer exposed; L97.322 Non-pressure chronic ulcer of left ankle with fat layer exposed; D50.8 Other iron deficiency anemias; N40.1 Benign prostatic hyperplasia with lower urinary tract symptoms; M19.90 Unspecified osteoarthritis, unspecified site ==

== ENCOUNTER 2019-04-22 14:05 | Outpatient (CLI) | payer MEDICARE | END 2019-04-22 14:06 | disposition home or self-care (01) | LOC: WOUND 14:05 ==

== ENCOUNTER 2019-04-26 08:33 | Outpatient (CLI) | payer MEDICARE ==
[2019-04-26] MEDS ORDERED: LIDOCAINE (4%) 40 MG/ML TOPICAL SOLN 50 ML BOTTLE TP ONE (09:30)
== END 2019-04-26 08:34 | disposition home or self-care (01) ==
LOC: WOUND 08:33
PROVIDERS: ATTEND Surgery
DX: I87.313 Chronic venous hypertension (idiopathic) with ulcer of bilateral lower extremity (principal); L97.822 Non-pressure chronic ulcer of other part of left lower leg with fat layer exposed; L97.812 Non-pressure chronic ulcer of other part of right lower leg with fat layer exposed; D50.8 Other iron deficiency anemias; M19.90 Unspecified osteoarthritis, unspecified site

== ENCOUNTER 2019-04-29 14:37 | Outpatient (CLI) | payer MEDICARE | END 2019-04-29 14:38 | disposition home or self-care (01) | LOC: WOUND 14:37 | PROVIDERS: ATTEND Surgery | DX: I87.313 Chronic venous hypertension (idiopathic) with ulcer of bilateral lower extremity (principal); L97.822 Non-pressure chronic ulcer of other part of left lower leg with fat layer exposed; L97.812 Non-pressure chronic ulcer of other part of right lower leg with fat layer exposed; D50.8 Other iron deficiency anemias; N40.1 Benign prostatic hyperplasia with lower urinary tract symptoms ==

== ENCOUNTER 2019-05-03 08:30 | Outpatient (CLI) | payer MEDICARE ==
[2019-05-03] MEDS ORDERED: LIDOCAINE (4%) 40 MG/ML TOPICAL SOLN 50 ML BOTTLE TP ONE (08:53)
== END 2019-05-03 08:31 | disposition home or self-care (01) ==
LOC: WOUND 08:30
PROVIDERS: ATTEND Surgery
DX: I87.313 Chronic venous hypertension (idiopathic) with ulcer of bilateral lower extremity (principal); L97.822 Non-pressure chronic ulcer of other part of left lower leg with fat layer exposed; L97.812 Non-pressure chronic ulcer of other part of right lower leg with fat layer exposed; D50.8 Other iron deficiency anemias; N40.1 Benign prostatic hyperplasia with lower urinary tract symptoms

== ENCOUNTER 2019-05-06 13:00 | Outpatient (CLI) | payer MEDICARE | END 2019-05-06 13:01 | disposition home or self-care (01) | LOC: WOUND 13:00 | PROVIDERS: ATTEND Surgery | DX: I87.313 Chronic venous hypertension (idiopathic) with ulcer of bilateral lower extremity (principal); L97.822 Non-pressure chronic ulcer of other part of left lower leg with fat layer exposed; L97.812 Non-pressure chronic ulcer of other part of right lower leg with fat layer exposed; D50.8 Other iron deficiency anemias; N40.1 Benign prostatic hyperplasia with lower urinary tract symptoms ==

== ENCOUNTER 2019-05-10 08:54 | Outpatient (CLI) | payer MEDICARE ==
[2019-05-10] MEDS ORDERED: LIDOCAINE (4%) 40 MG/ML TOPICAL SOLN 50 ML BOTTLE TP ONE (09:30)
== END 2019-05-10 08:55 | disposition home or self-care (01) ==
LOC: WOUND 08:54
PROVIDERS: ATTEND Surgery
DX: I87.313 Chronic venous hypertension (idiopathic) with ulcer of bilateral lower extremity (principal); L97.322 Non-pressure chronic ulcer of left ankle with fat layer exposed; L97.312 Non-pressure chronic ulcer of right ankle with fat layer exposed; D50.8 Other iron deficiency anemias; N40.1 Benign prostatic hyperplasia with lower urinary tract symptoms; M19.90 Unspecified osteoarthritis, unspecified site

== ENCOUNTER 2019-05-13 13:12 | Outpatient (CLI) | payer MEDICARE | END 2019-05-13 13:13 | disposition home or self-care (01) | LOC: WOUND 13:12 | PROVIDERS: ATTEND Surgery | DX: I87.313 Chronic venous hypertension (idiopathic) with ulcer of bilateral lower extremity (principal); L97.822 Non-pressure chronic ulcer of other part of left lower leg with fat layer exposed; L97.812 Non-pressure chronic ulcer of other part of right lower leg with fat layer exposed; D50.8 Other iron deficiency anemias; N40.1 Benign prostatic hyperplasia with lower urinary tract symptoms ==

== ENCOUNTER 2019-05-17 08:40 | Outpatient (CLI) | payer MEDICARE ==
[2019-05-17] MEDS ORDERED: LIDOCAINE (4%) 40 MG/ML TOPICAL SOLN 50 ML BOTTLE TP SCH (09:00)
== END 2019-05-17 08:41 | disposition home or self-care (01) ==
LOC: WOUND 08:40
PROVIDERS: ATTEND Surgery
DX: I87.313 Chronic venous hypertension (idiopathic) with ulcer of bilateral lower extremity (principal); L97.322 Non-pressure chronic ulcer of left ankle with fat layer exposed; L97.312 Non-pressure chronic ulcer of right ankle with fat layer exposed; D50.8 Other iron deficiency anemias; N40.1 Benign prostatic hyperplasia with lower urinary tract symptoms; M19.90 Unspecified osteoarthritis, unspecified site

== ENCOUNTER 2019-05-20 13:49 | Outpatient (CLI) | payer MEDICARE | END 2019-05-20 13:50 | disposition home or self-care (01) | LOC: WOUND 13:49 | PROVIDERS: ATTEND Surgery | DX: I87.313 Chronic venous hypertension (idiopathic) with ulcer of bilateral lower extremity (principal); L97.822 Non-pressure chronic ulcer of other part of left lower leg with fat layer exposed; L97.812 Non-pressure chronic ulcer of other part of right lower leg with fat layer exposed; D50.8 Other iron deficiency anemias; N40.1 Benign prostatic hyperplasia with lower urinary tract symptoms ==

== ENCOUNTER 2019-05-24 08:46 | Outpatient (CLI) | payer MEDICARE ==
[2019-05-24] MEDS ORDERED: LIDOCAINE (4%) 40 MG/ML TOPICAL SOLN 50 ML BOTTLE TP ONE (09:30)
== END 2019-05-24 08:47 | disposition home or self-care (01) ==
LOC: WOUND 08:46
PROVIDERS: ATTEND Surgery
DX: I87.313 Chronic venous hypertension (idiopathic) with ulcer of bilateral lower extremity (principal); L97.322 Non-pressure chronic ulcer of left ankle with fat layer exposed; L97.312 Non-pressure chronic ulcer of right ankle with fat layer exposed; D50.8 Other iron deficiency anemias; N40.1 Benign prostatic hyperplasia with lower urinary tract symptoms; M19.90 Unspecified osteoarthritis, unspecified site

== ENCOUNTER 2019-05-27 13:29 | Outpatient (CLI) | payer MEDICARE | END 2019-05-27 13:30 | disposition home or self-care (01) | LOC: WOUND 13:29 | PROVIDERS: ATTEND Surgery | DX: I87.313 Chronic venous hypertension (idiopathic) with ulcer of bilateral lower extremity (principal); L97.322 Non-pressure chronic ulcer of left ankle with fat layer exposed; L97.312 Non-pressure chronic ulcer of right ankle with fat layer exposed; D50.8 Other iron deficiency anemias; N40.1 Benign prostatic hyperplasia with lower urinary tract symptoms; M19.90 Unspecified osteoarthritis, unspecified site ==

== ENCOUNTER 2019-05-31 08:31 | Outpatient (CLI) | payer MEDICARE ==
[2019-05-31] MEDS ORDERED: LIDOCAINE (4%) 40 MG/ML TOPICAL SOLN 50 ML BOTTLE TP ONE (09:30)
== END 2019-05-31 08:32 | disposition home or self-care (01) ==
LOC: WOUND 08:31
PROVIDERS: ATTEND Surgery
DX: I87.313 Chronic venous hypertension (idiopathic) with ulcer of bilateral lower extremity (principal); L97.322 Non-pressure chronic ulcer of left ankle with fat layer exposed; L97.312 Non-pressure chronic ulcer of right ankle with fat layer exposed; D50.8 Other iron deficiency anemias; N40.1 Benign prostatic hyperplasia with lower urinary tract symptoms; M19.90 Unspecified osteoarthritis, unspecified site

== ENCOUNTER 2019-06-03 14:04 | Outpatient (CLI) | payer MEDICARE | END 2019-06-03 14:05 | disposition home or self-care (01) | LOC: WOUND 14:04 | PROVIDERS: ATTEND Surgery | DX: I87.313 Chronic venous hypertension (idiopathic) with ulcer of bilateral lower extremity (principal); L97.812 Non-pressure chronic ulcer of other part of right lower leg with fat layer exposed; L97.822 Non-pressure chronic ulcer of other part of left lower leg with fat layer exposed; D50.8 Other iron deficiency anemias; N40.1 Benign prostatic hyperplasia with lower urinary tract symptoms; M19.90 Unspecified osteoarthritis, unspecified site ==

== ENCOUNTER 2019-06-10 13:59 | Outpatient (CLI) | payer MEDICARE | END 2019-06-10 14:00 | disposition home or self-care (01) | LOC: WOUND 13:59 | PROVIDERS: ATTEND Surgery | DX: I87.313 Chronic venous hypertension (idiopathic) with ulcer of bilateral lower extremity (principal); L97.812 Non-pressure chronic ulcer of other part of right lower leg with fat layer exposed; L97.822 Non-pressure chronic ulcer of other part of left lower leg with fat layer exposed; D50.8 Other iron deficiency anemias; N40.1 Benign prostatic hyperplasia with lower urinary tract symptoms; M19.90 Unspecified osteoarthritis, unspecified site ==

== ENCOUNTER 2019-06-14 08:24 | Outpatient (CLI) | payer MEDICARE ==
[2019-06-14] MEDS ORDERED: LIDOCAINE (4%) 40 MG/ML TOPICAL SOLN 50 ML BOTTLE TP ONE (09:13)
== END 2019-06-14 08:25 | disposition home or self-care (01) ==
LOC: WOUND 08:24
PROVIDERS: ATTEND Surgery
DX: I87.313 Chronic venous hypertension (idiopathic) with ulcer of bilateral lower extremity (principal); L97.322 Non-pressure chronic ulcer of left ankle with fat layer exposed; L97.312 Non-pressure chronic ulcer of right ankle with fat layer exposed; D50.8 Other iron deficiency anemias; N40.1 Benign prostatic hyperplasia with lower urinary tract symptoms; M19.90 Unspecified osteoarthritis, unspecified site

== ENCOUNTER 2019-06-17 14:23 | Outpatient (CLI) | payer MEDICARE | END 2019-06-17 14:24 | disposition home or self-care (01) | LOC: WOUND 14:23 | PROVIDERS: ATTEND Surgery | DX: I87.313 Chronic venous hypertension (idiopathic) with ulcer of bilateral lower extremity (principal); L97.322 Non-pressure chronic ulcer of left ankle with fat layer exposed; L97.312 Non-pressure chronic ulcer of right ankle with fat layer exposed; D50.8 Other iron deficiency anemias; N40.1 Benign prostatic hyperplasia with lower urinary tract symptoms; M19.90 Unspecified osteoarthritis, unspecified site ==

== ENCOUNTER 2019-06-21 08:35 | Outpatient (CLI) | payer MEDICARE ==
[2019-06-21] MEDS ORDERED: LIDOCAINE (4%) 40 MG/ML TOPICAL SOLN 50 ML BOTTLE TP ONE (09:00)
== END 2019-06-21 08:36 | disposition home or self-care (01) ==
LOC: WOUND 08:35
PROVIDERS: ATTEND Surgery
DX: I87.313 Chronic venous hypertension (idiopathic) with ulcer of bilateral lower extremity (principal); L97.322 Non-pressure chronic ulcer of left ankle with fat layer exposed; L97.312 Non-pressure chronic ulcer of right ankle with fat layer exposed; D50.8 Other iron deficiency anemias; N40.1 Benign prostatic hyperplasia with lower urinary tract symptoms; M19.90 Unspecified osteoarthritis, unspecified site

== ENCOUNTER 2019-06-24 14:23 | Outpatient (CLI) | payer MEDICARE | END 2019-06-24 14:24 | disposition home or self-care (01) | LOC: WOUND 14:23 | PROVIDERS: ATTEND Surgery | DX: I87.313 Chronic venous hypertension (idiopathic) with ulcer of bilateral lower extremity (principal); L97.322 Non-pressure chronic ulcer of left ankle with fat layer exposed; L97.312 Non-pressure chronic ulcer of right ankle with fat layer exposed; D50.8 Other iron deficiency anemias; N40.1 Benign prostatic hyperplasia with lower urinary tract symptoms; M19.90 Unspecified osteoarthritis, unspecified site ==

== ENCOUNTER 2019-07-05 08:30 | Outpatient (CLI) | payer MEDICARE ==
[2019-07-05] MEDS ORDERED: LIDOCAINE (4%) 40 MG/ML TOPICAL SOLN 50 ML BOTTLE TP ONE (09:30)
== END 2019-07-05 08:31 | disposition home or self-care (01) ==
LOC: WOUND 08:30
PROVIDERS: ATTEND Surgery
DX: I87.313 Chronic venous hypertension (idiopathic) with ulcer of bilateral lower extremity (principal); L97.322 Non-pressure chronic ulcer of left ankle with fat layer exposed; L97.312 Non-pressure chronic ulcer of right ankle with fat layer exposed; D50.8 Other iron deficiency anemias; N40.1 Benign prostatic hyperplasia with lower urinary tract symptoms; M19.90 Unspecified osteoarthritis, unspecified site

== ENCOUNTER 2019-07-12 09:46 | Outpatient (CLI) | payer MEDICARE ==
[2019-07-12] MEDS ORDERED: LIDOCAINE (4%) 40 MG/ML TOPICAL SOLN 50 ML BOTTLE TP ONE (10:30)
[2019-07-12] MEDS ORDERED: SODIUM CHLORIDE 0.9% 1000 ML 1,000 ML ONE (15:11)
[2019-07-12] MEDS ORDERED: INSULIN REGULAR, HUMAN 100 UNITS/1 ML ONE ×2 (15:41→16:07)
== END 2019-07-12 09:47 | disposition home or self-care (01) ==
LOC: WOUND 09:46
PROVIDERS: ATTEND Surgery
DX: I87.313 Chronic venous hypertension (idiopathic) with ulcer of bilateral lower extremity (principal); L97.322 Non-pressure chronic ulcer of left ankle with fat layer exposed; L97.312 Non-pressure chronic ulcer of right ankle with fat layer exposed; D50.8 Other iron deficiency anemias; N40.1 Benign prostatic hyperplasia with lower urinary tract symptoms; M19.90 Unspecified osteoarthritis, unspecified site
CPT/HCPCS: 15271; J7030; Q4196; J1815

== ENCOUNTER 2019-07-15 13:18 | Outpatient (CLI) | payer MEDICARE | END 2019-07-15 13:19 | disposition home or self-care (01) | LOC: WOUND 13:18 | PROVIDERS: ATTEND Surgery | DX: I87.313 Chronic venous hypertension (idiopathic) with ulcer of bilateral lower extremity (principal); L97.322 Non-pressure chronic ulcer of left ankle with fat layer exposed; L97.312 Non-pressure chronic ulcer of right ankle with fat layer exposed; D50.8 Other iron deficiency anemias; N40.1 Benign prostatic hyperplasia with lower urinary tract symptoms; M19.90 Unspecified osteoarthritis, unspecified site | CPT/HCPCS: 99213; G0463 ==

== ENCOUNTER 2019-07-23 13:29 | Outpatient (CLI) | payer MEDICARE | END 2019-07-23 13:30 | disposition home or self-care (01) | LOC: WOUND 13:29 | PROVIDERS: ATTEND Surgery | DX: I87.313 Chronic venous hypertension (idiopathic) with ulcer of bilateral lower extremity (principal); L97.322 Non-pressure chronic ulcer of left ankle with fat layer exposed; L97.312 Non-pressure chronic ulcer of right ankle with fat layer exposed; D50.8 Other iron deficiency anemias; N40.1 Benign prostatic hyperplasia with lower urinary tract symptoms; M19.90 Unspecified osteoarthritis, unspecified site ==

== ENCOUNTER 2019-07-27 09:00 | Outpatient (CLI) | payer MEDICARE ==
[2019-07-27] MEDS ORDERED: LIDOCAINE (4%) 40 MG/ML TOPICAL SOLN 50 ML BOTTLE TP ONE (09:30)
== END 2019-07-27 09:01 | disposition home or self-care (01) ==
LOC: WOUND 09:00
PROVIDERS: ATTEND Surgery
DX: I87.313 Chronic venous hypertension (idiopathic) with ulcer of bilateral lower extremity (principal); L97.322 Non-pressure chronic ulcer of left ankle with fat layer exposed; L97.312 Non-pressure chronic ulcer of right ankle with fat layer exposed; D50.8 Other iron deficiency anemias; N40.1 Benign prostatic hyperplasia with lower urinary tract symptoms; M19.90 Unspecified osteoarthritis, unspecified site

== ENCOUNTER 2019-07-29 09:33 | Outpatient (CLI) | payer MEDICARE | END 2019-07-29 09:34 | disposition home or self-care (01) | LOC: WOUND 09:33 | PROVIDERS: ATTEND Surgery | DX: I87.313 Chronic venous hypertension (idiopathic) with ulcer of bilateral lower extremity (principal); L97.322 Non-pressure chronic ulcer of left ankle with fat layer exposed; L97.312 Non-pressure chronic ulcer of right ankle with fat layer exposed; D50.8 Other iron deficiency anemias; N40.1 Benign prostatic hyperplasia with lower urinary tract symptoms; M19.90 Unspecified osteoarthritis, unspecified site | CPT/HCPCS: 99215; G0463 ==

== ENCOUNTER 2019-09-27 09:50 | Outpatient (CLI) | payer MEDICARE ==
[2019-09-27] MEDS ORDERED: LIDOCAINE (4%) 40 MG/ML TOPICAL SOLN 50 ML BOTTLE TP ONE (10:09)
== END 2019-09-27 09:51 | disposition home or self-care (01) ==
LOC: WOUND 09:50
PROVIDERS: ATTEND Surgery
DX: I87.313 Chronic venous hypertension (idiopathic) with ulcer of bilateral lower extremity (principal); L97.322 Non-pressure chronic ulcer of left ankle with fat layer exposed; L97.312 Non-pressure chronic ulcer of right ankle with fat layer exposed; D50.8 Other iron deficiency anemias; N40.1 Benign prostatic hyperplasia with lower urinary tract symptoms; M19.90 Unspecified osteoarthritis, unspecified site
CPT/HCPCS: 87075; 87116